=== PATIENT | female | born 1940 | race Caucasian/White ===

== ENCOUNTER 2024-12-23 12:18 | Outpatient (AMB) | payer OTHER, SELFPAY ==
--- NOTE | 2024-12-23 12:46 | A.OFFVIS_ITS ---
Intake Visit Reasons: TIA (cardiology) HPI Comments Details: 84 yo woman with congenital deafness and associated speech impediment, CAD s/p PCI x 2, DM, and HTN who was seen at [facility] in June of 2024 with symptoms of right facial droop and disorientation. Her testing revealed no acute lesion on CT and Left P1 stenosis on CTA. I did not find an MRI done. She did not have anymore episodes. She said that she was here for a neurology consultation with an unclear reason for referral. She was referred by her nurse practitioner, Kodi James, from [facility] but is unaware of the reason for the visit and denies any recent stroke-like symptoms. The patient reports a history of two hernias, one in the upper abdomen and one in the lower abdomen, with a hernia repair surgery planned for December or January. She mentions requiring pre-operative tests, including imaging, but cannot recall the specifics. She has a past medical history of a heart attack. The patient was born deaf and attended the [employer] for 13 years, where she learned to read lips and speak. She uses a walker for ambulation due to leg weakness. She also notes having difficulty with memory, is trying to lose weight, and feels her abdomen is large. Review of Systems Narrative - Neurological: Reports memory impairment. - Denies recent stroke-like symptoms. - Musculoskeletal: Reports leg weakness requiring a walker. - HEENT: Reports being born deaf and that her speech is not always clear. - Gastrointestinal: Reports having two hernias, one in the upper and one in the lower abdomen. - Constitutional: Reports trying to lose weight. Physical Exam Neuro Other: Mental Status: She is alert and awake and she was interviewed with help of an director center. Sign language, speech, and lip reading were used. She did not know why she was here. She was able to answer questions with no obvious confusion. Cranial Nerves: CN VII: Facial movements symmetrical. CN VIII: Hearing intact to bedside conversation is absent. CN IX, X: Palate elevates symmetrically. CN XI: Shoulder shrug and head turn symmetrical. CN XII: Tongue midline without atrophy or fasciculations. Motor: No obvious arm or leg weakness Reflexes: Deep tendon reflexes are trace to absent Coordination: Ttbkwq-ks-eizk and bsel-vm-zazk testing normal. No dysmetria. Gait and Station: Slow and cautious with a walker Extrapyramidal: Full facial expressions and blinking. No rigidity. Movements are appropriate with no tremor or abnormality. Speech: Moderate speech impediment Assessment & Plan Assessment & Plan (1) Intracranial atherosclerosis: Comment: CT brain WO at [facility] in June 2024: Mild cerebral and cerebellar atrophy CTA brain and neck at [facility] in June 2024: Severe L P1 stenosis Code(s): I67.2 - Cerebral atherosclerosis Category: Medical (2) MCI (mild cognitive impairment): Code(s): G31.84 - Mild cognitive impairment of uncertain or unknown etiology Category: Medical Plan Impression: a: Left P1 stenosis b: Mild cerebral and cerebellar atrophy c: Congenital deafness resulting in speech impediment d: An episode of disorientation and facial droop in June when she went to [facility] Rec: a: Antiplatelet agent b: BP control c: Statin d: EEG to r/o seizure d/o e: No contraindication to hernia surgery or anesthesia Orders: Orders Vitamin B12 and Folate Today G31.84 - Mild cognitive impairment of uncertain or unknown etiology EEG Routine Today G40.909 - Epilepsy, unspecified, not intractable, without status epilepticus Coding Level of Care Code New Pt Level 4 (13254) Diagnoses Intracranial atherosclerosis I67.2 MCI (mild cognitive impairment) G31.84 Time Spent (min) 50 Comment Sign language interpretation used for this consult
== END 2024-12-23 13:15 | disposition home or self-care (01) ==
LOC: HO.HSM 12:18
PROVIDERS: PCP Nurse Practitioner; Visit Provider Psychiatry & Neurology Neurology
DX: I67.2 Cerebral atherosclerosis (principal); G31.84 Mild cognitive impairment of uncertain or unknown etiology
CPT/HCPCS: 99204

== ENCOUNTER → 2024-12-23 12:18 | Outpatient (BNVA) | payer OTHER, SELFPAY | PROVIDERS: PCP Nurse Practitioner; Visit Provider Psychiatry & Neurology Neurology | DX: I67.2 Cerebral atherosclerosis (principal) | CPT/HCPCS: 99202 ==

== ENCOUNTER 2025-01-26 13:28 | Outpatient (REF) | payer OTHER, SELFPAY ==
--- OUTSIDE RECORDS SUMMARY | 2025-01-22 11:30 | XMS_ITS | Encounter Summary ---
Author Organization [facility] Address [address] [place] [address] Care Team Providers Care Ornamenter Hand Name Role Phone Kodi James NP Primary Care Provider [phone] Encounter Details Date Type Department Care Team (Latest Contact Info) Description 01/22/2025 11:30 AM EST Clinical Support [facility] [address] [place] [phone] Dee Louis LPN Cough, unspecified type (Primary Dx) Social History Tobacco Use Types Packs/Day Years Used Date Smoking Tobacco: Never Comments:Never smoked tobacc o Alcohol Use Standard Drinks/Week Comments Not Currently 0 (1 standard drink = 0.6 oz pur e alcohol) Interpersonal Safety Answer Date Record ed Physical Abuse Unrecognized value 09/25/2024 Verbal Abuse Unrecognized value 09/25/2024 Comments Unknown Sex and Gender Information Value Date Recorded Sex Assigned at Female 05/15/2024 11:02 AM EDT Legal Sex Female 6:34 PM EST Gender Identity Female 05/15/2024 11:02 AM EDT Sexual Orientation Straight 05/15/2024 11 :02 AM EDT documented as of this encounter Progress Notes * Dee Louis LPN - 01/22/2025 11:30 AM EST SN visit to assess cold sx Ppt sitting in recliner with legs elevated visiting with friend. Ppt states she is feeling much improved from previous visit re cold sx. No further sinus congestionor cough present. Skin warm and dry. Appetite good. Having no new c/o pain or discomfort. LSCTA To continue with present plan of care documented in this encounter Plan of Treatment Upcoming Encounters Date Type Department Care Team (Late st Contact Info) Description 02/03/2025 12:45 PM EST Clinical Support [facility] [place] [address] [place] [address] 02/10/2025 1:10 PM EST Clinical Support [facility] [address] [address] 03/12/2025 9:00 AM EST Office Visit V[facility] Surgery - [place] [address] [place] [address] Betty Cordero PA [address] [place] [phone] documented as of this encounter Visit Diagnoses Diagnosis Cough, unspecified type- Primary documented in this encounter Additional Health Concerns Assessment Noted Time PHQ-9 Depression Total Score: 0 05/07/19 25 2:35 PM EDT documented as of this encounter Care Teams Ornamenter Hand Relationship Specialty Start Date End Date Kodi James NP [address] [place] [address] PCP - General 12/11/23 documented as of this encounter
--- OUTSIDE RECORDS SUMMARY | 2025-01-23 13:45 | XMS_ITS | Encounter Summary ---
Author Organization [facility] Address [address] [place] [address] Care Team Providers Care Instructor Private Name Role Phone Kodi James NP Primary Care Provider Reason for Visit * Consultation (Routine) - Authorized Specialty Diagnoses / Procedures Referred By Contac t Referred To Contact Otolaryngology Diagnoses ENT/Spoke to gladys @ [facility] aware of appt and txp Procedures EXTERNAL VISIT Kodi James NP [address] [place] [address] Phone: tel: fax:[phone] [facility] [address] [place] [address] Phone: tel: fax: Referral ID Status Reason Start Date Expiration Date V isits Requested Visits Authorized [id number] Authorized 01/23/2025 01/23/2026 1 1 Encounter Details Date Type Department Care Team (Late st Contact Info) Description 01/23/2025 1:45 PM EST [place] External Visit [facility] [address] [place] [phone] Social History Tobacco Use Types Packs/Day Years [...] AM EDT documented as of this encounter Plan of Treatment Upcoming Encounters Date Type Department Care Team (Late st Contact Info) Description 02/03/2025 12:45 PM EST Clinical Support [facility] [address] [phone] 02/10/2025 1:10 PM EST Clinical Support [facility] [address] [phone] 03/12/2025 9:00 AM EST Office Visit Vascular Surgery - [place] [address] [place] [phone] Betty Cordero PA [address] [place] [phone] documented as of this encounter Visit Diagnoses Not on filedocumented in this encounter Additional Health Concerns Assessment Noted Time PHQ-9 Depression Total Score: 0 05/07/19 25 2:35 PM EDT documented as of this encounter Care Teams Instructor Private Relationship Specialty Start Date End Date Kodi James NP [address] [place] [address] PCP - General 12/11/23 documented as of this encounter
--- OUTSIDE RECORDS SUMMARY | 2025-01-26 13:00 | XMS_ITS | Encounter Summary ---
Author Organization [facility] Address [address] [place] [address] Care Team Providers Care Clamshell Operator Name Role Phone Kodi James HAND THERAPIST Primary Care Provider [phone] Reason for Visit * Consultation (Routine) - Authorized Specialty Diagnoses / Procedures Referred By Contac t Referred To Contact Neurology Diagnoses [facility] (EE[facility]) Procedures EXTERNAL VISIT Kodi James NP [address] [place] [address] Phone: tel: fax:[phone] [facility] [address] Phone: tel: Referral ID Status Reason Start Date Expiration Date V isits Requested Visits Authorized [id number] Authorized 01/26/2025 01/26/2026 1 1 Encounter Details Date Type Department Care Team (Late st Contact Info) Description 01/26/2025 1:00 PM EST [facility]ACE [facility] [address] [place] [address] Social History Tobacco Use Types Packs/Day Years [...] Description 02/03/2025 12:45 PM EST Clinical Support [facility] [place] [address] [place] [address] 02/10/2025 1:10 PM EST [facility] [address] [phone] 03/12/2025 9:00 AM EST Office Visit Vascular Surgery - [place] [address] [place] [phone] Betty Cordero PA [address] [place] [phone] documented as of this encounter Visit Diagnoses Not on filedocumented in this encounter Additional Health Concerns Assessment Noted Time PHQ-9 Depression Total Score: 0 05/07/19 25 2:35 PM EDT documented as of this encounter Care Teams Clamshell Operator Relationship Specialty Start Date End Date Kodi James NP [address] [address] PCP - General 12/11/23 documented as of this encounter
--- NOTE | 2025-01-26 14:52 | EEG_ITS ---
History: 84 yo woman with congenital deafness and associated speech impediment, CAD s/p PCI x 2, DM, and HTN who was seen at [facility] in June of 2024 with symptoms of right facial droop and disorientation. Her testing revealed no acute lesion on CT and Left P1 stenosis on CTA. I did not find an MRI done. She did not have anymore episodes. She also notes having difficulty with memory Medication: Description: Technical description:? Photic stimulation: Yes Hyperventilation:?Omitted Behavioral state: Cooperative State of Consciousness: Awake Skull defect: None Sedation: None Handedness: Right Duration of study:? 33min 58sec This is a 16 channel EEG with an EKG lead. Patient is reported awake during the tracing. Background EEG rhythm is low amplitude fast during wakefulness with transitioning into drowsiness with generalized theta range slowing. Photic stimulation does not produce any significant abnormality. Hyperventilation is not performed. Cardiac lead does not reveal any significant abnormality. No sharp wave spikes or paroxysmal tendency noted. Impression: Unremarkable EEG. MARIED
--- OUTSIDE RECORDS SUMMARY | 2025-01-26 16:56 | XMS_ITS | Encounter Summary ---
Author Organization [facility] Address [address] [place] [address] Care Team Providers Care Bakery Technician Name Role Phone Kodi Jmaes NP Primary Care Provider [phone] Reason for Visit * Reason Onset Date Comments Clinical 07/03/2024 Jake the staff at [facility] called to report participant was c/o stomach issues and diarrhea . Stated she did not feel the need to go any hospital but the staff at [facility] wanted to know if some medication can be ordered to alleviate the symptoms. production shift supervisor provider informed for further f/u. Encounter Details Date Type Department Care Team ([facility] st Contact Info) Description 07/03/2024 [place] On-Call [facility] [address] [place] [address] Kodi James NP [address] [address] Social History Tobacco Use Types Packs/Day Years Used Date Smoking Tobacco: Never Comments:Never smoked tobacc o Alcohol Use Standard Drinks/Week Comments Not Currently 0 (1 standard drink = 0.6 oz pur e alcohol) Interpersonal Safety Answer Date Record ed Physical Abuse Unrecognized value 06/17/2024 Verbal Abuse Unrecognized value 06/17/2024 Comments Unknown Sex and Gender Information Value [...] Description 02/03/2025 12:45 PM EST Clinical Support [facility] [place] [address] [place] [address] 02/10/2025 1:10 PM EST Clinical Support [facility] [address] [address] 03/12/2025 9:00 AM EST Office Visit Vascular [facility] [address] [place] [address] Betty Cordero PA [address] [place] [phone] documented as of this encounter Visit Diagnoses Not on filedocumented in this encounter Additional Health Concerns Infection Onset Date Last Indicated Resolved Time Respiratory Rule-Out 09/25/2024 09/25/2024 025 9:16 PM EDT COVID-19 Rule-Out 09/25/2024 09/25/2024 09/25/2024 9:16 PM EDT COVID-19 09/25/2024 09/25/2024 10/25/2024 7:06 PM EDT Assessment Noted Time PHQ-9 Depression Total Score: 0 05/07/19 25 2:35 PM EDT documented as of this encounter Care Teams Bakery Technician Relationship Specialty Start Date End Date Kodi James NP [address] [facility] [address] [place] [address] PCP - General 12/11/23 documented as of this encounter
--- OUTSIDE RECORDS SUMMARY | 2025-01-26 16:56 | XMS_ITS | Encounter Summary ---
Author Organization [facility] Address [address] [place] [address] Care Team Providers Care Freelance Copywriter Name Role Phone Kodi James NP Primary Care Provider [phone] Encounter Details Date Type Department Care Team (Late st Contact Info) Description 01/21/2025 Telephone [facility] [address] [place] [phone] Dee Louis LPN Social History Tobacco Use Types Packs/Day Years [...] Progress Notes * Dee Louis LPN - 01/21/2025 9:22 AM EST TC placed to ppt daughter Joya to inform her that ppt chest x-ray obtained 01/20/25 was negative . No answer. Message left on daughter Amys voice mail to call [facility] clinic. documented in this encounter Plan of Treatment Upcoming Encounters Date Type Department Care Team (Late st Contact Info) Description 02/03/2025 12:45 PM EST Clinical Support [facility] [place] [address] [place] [address] 02/10/2025 1:10 PM EST Clinical Support [facility] [address] [address] 03/12/2025 9:00 AM EST Office Visit Vascular Surgery - [place] [address] [place] [address] Betty Cordero PA [address] [place] [phone] documented as of this encounter Visit Diagnoses Not on filedocumented in this encounter Additional Health Concerns Assessment Noted Time PHQ-9 Depression Total Score: 0 05/07/19 25 2:35 PM EDT documented as of this encounter Care Teams Freelance Copywriter Relationship Specialty Start Date End Date Kodi James NP [address] [place] [address] PCP - General 12/11/23 documented as of this encounter
--- OUTSIDE RECORDS SUMMARY | 2025-01-26 16:56 | XMS_ITS | Encounter Summary ---
Author Organization [facility] Address [address] [place] [address] Care Team Providers Care Barrel Repairer Name Role Phone Kodi James NP Primary Care Provider [phone] Reason for Visit * Reason Onset Date Comments Clinical 11/30/2024 Linda from [facility] called to report daughter Joya had came to facility to pre pour the ordered Tramadol for par. Linda reports the daughter thinks 50 mg of Tramadol is too much ? Informed Linda the message would be relayed to the provider and further follow up will provided next day when clinic is open. Verbalized understanding. Encounter Details Date Type Department Care Team ([facility] st Contact Info) Description 11/30/2024 [place] On-Call [facility] [address] [place] [address] Kodi James NP [address] [address] Social History Tobacco Use Types Packs/Day Years [...] as of this encounter Progress Notes * Kaylee Hyde RD - 12/02/2024 8:37 AM EDT RESOLVED documented in this encounter Plan of Treatment Upcoming Encounters Date Type Department Care Team (Late st Contact Info) Description 02/03/2025 12:45 PM EST Clinical Support [facility] [address] [address] 02/10/2025 1:10 PM EST Clinical Support [facility] [address] [address] 03/12/2025 9:00 AM EST Office Visit Vascular Surgery - [place] [address] [place] [phone] Betty Cordero PA [address] [place] [phone] documented as of this encounter Visit Diagnoses Not on filedocumented in this encounter Additional Health Concerns Assessment Noted Time PHQ-9 Depression Total Score: 0 05/07/19 25 2:35 PM EDT documented as of this encounter Care Teams Barrel Repairer Relationship Specialty Start Date End Date Kodi James NP [address] [place] [address] PCP - General 12/11/23 documented as of this encounter
--- OUTSIDE RECORDS SUMMARY | 2025-01-26 16:56 | XMS_ITS | Encounter Summary ---
Author Organization [facility] Address [address] [place] [address] Care Team Providers Care Assembler 1St Shift Name Role Phone Kodi James NP Primary Care Provider [phone] Reason for Visit * Reason Onset Date Comments Medication 12/14/2024 Jonas from [facility] called to inquire if the Doxycycline that was ordered via [facility] was correct vs a CPN order. Spoke with publicity consultant provider who reports par will not need abx until Sunday12/15/2024. Clinic staff to follow up with distrubution of medication to par. Encounter Details Date Type Department Care Team ([facility] st Contact Info) Description 12/14/2024 [place] On-Call [facility] [address] [place] [address] Kodi James NP [facility] [address] [address] Social History Tobacco Use Types Packs/Day Years [...] as of this encounter Progress Notes * Gila Chiu RN - 12/15/2024 8:40 AM EST 12/15/24 PCP ordered doxycycline to be delivered. skiagrapher to deliver today. documented in this encounter Plan of Treatment Upcoming Encounters Date Type Department Care Team (Late st Contact Info) Description 02/03/2025 12:45 PM EST Clinical Support [facility] [address] [phone] 02/10/2025 1:10 PM EST Clinical Support [facility] [address] [address] 03/12/2025 9:00 AM EST Office Visit Vascular Surgery - [place] [address] [place] [address] Betty Cordero PA [address] [place] [phone] documented as of this encounter Visit Diagnoses Not on filedocumented in this encounter Additional Health Concerns Assessment Noted Time PHQ-9 Depression Total Score: 0 05/07/19 25 2:35 PM EDT documented as of this encounter Care Teams Assembler 1St Shift Relationship Specialty Start Date End Date Kodi James NP [address] [place] [address] PCP - General 12/11/23 documented as of this encounter
--- OUTSIDE RECORDS SUMMARY | 2025-01-26 16:56 | XMS_ITS | Encounter Summary ---
Author Organization [facility] Address [address] [place] [address] Care Team Providers Care Local Announcer Name Role Phone Kodi James NP Primary Care Provider [phone] Reason for Visit * Reason Onset Date Comments Medication 01/01/2025 Myrna from [facility] called to inquire the whereabouts of participant's meds. Eventually they were found in her residence. No further follow up needed. Encounter Details Date Type Department Care Team ([facility] st Contact Info) Description 01/01/2025 [place] On-Call [facility] [address] [place] [address] Kodi James NP [address] [phone] Social History Tobacco Use Types Packs/Day Years [...] Description 02/03/2025 12:45 PM EST Clinical Support [facility] [place] [address] [place] [address] 02/10/2025 1:10 PM EST Clinical Support [facility] [address] [phone] 03/12/2025 9:00 AM EST Office Visit Vascular Surgery - [place] [address] [place] [address] Betty oCrdero PA [address] [place] [phone] documented as of this encounter Visit Diagnoses Not on filedocumented in this encounter Additional Health Concerns Assessment Noted Time PHQ-9 Depression Total Score: 0 05/07/19 25 2:35 PM EDT documented as of this encounter Care Teams Local Announcer Relationship Specialty Start Date End Date Kodi James NP [address] [address] PCP - General 12/11/23 documented as of this encounter
--- OUTSIDE RECORDS SUMMARY | 2025-01-26 16:56 | XMS_ITS | Encounter Summary ---
Author Organization [facility] Address [address] [place] [address] Care Team Providers Care Warehouse Distribution Manager Name Role Phone Kodi James NP Primary Care Provider [phone] Reason for Visit * Reason Onset Date Comments Clinical 09/27/2024 Dang from [facility] reports par was ready for discharge back to residence and will be going via ambulance. propeller driven airplane mechanic provider made aware. Encounter Details Date Type Department Care Team (Late st Contact Info) Description 09/27/2024 [place] On-Call [facility] [address] [place] [phone] Ramila Andino NP [address] [phone] Social History Tobacco Use Types Packs/Day Years [...] Description 02/03/2025 12:45 PM EST Clinical Support [facility] [place] [address] [place] [address] 02/10/2025 1:10 PM EST Clinical Support [email or web address] [address] [phone] 03/12/2025 9:00 AM EST Office Visit Vascular Surgery - [place] [address] [place] [address] Betty Cordero PA [address] [place] [phone] documented as of this encounter Visit Diagnoses Not on filedocumented in this encounter Additional Health Concerns Infection Onset Date Last Indicated Resolved Time COVID-19 09/25/2024 09/25/2024 10/25/2024 7:06 PM EDT Assessment Noted Time PHQ-9 Depression Total Score: 0 05/07/19 25 2:35 PM EDT documented as of this encounter Care Teams Warehouse Distribution Manager Relationship Specialty Start Date End Date Kodi James NP [address] [address] PCP - General 12/11/23 documented as of this encounter
--- OUTSIDE RECORDS SUMMARY | 2025-01-26 16:56 | XMS_ITS | Clinical Summary ---
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 Name Role Phone Namrata Godoy NP Primary Care Provider [phone] Allergies Active Allergy Reactions Criticality Noted Date Comments Sulfa (Sulfonamide Antibiotics) 02/14/2022 Valsartan-Hydrochlorothiaz enzo 02/14/2022 DIOVAN- rxn: restless leg syndrome Medications loperamide (IMODIUM) 2 mg capsule 1 cap by mouth every 1 to 2 hours prn loose stool; administer after each loose stool until symptoms controlled; do not exceed 16 mg per 24 h Active sennosides-docusate sodium (Stool Softener-Stimulant Laxat) 8.6-50 mg capsuleIndications:Po lypharmacy Take 1 capsule by mouth 2 (two) times a day. 56 capsule 05/07/19 026 Active ascorbic acid (VITAMIN C) 1,000 mg tabletIndications:His tory of recurrent UTIs Take 1 tablet (1,000 mg total) by mouth 1 (one) time each day. 28 tablet 06/04/19 25 026 Active methenamine hippurate (HIPREX) 1 gram tabletIndications:His tory of recurrent UTIs Take 1 tablet (1 g total) by mouth 2 (two) times a day with meals. 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 V24, [facility] V28),Overactive bladder Take 2 capsules (200 mg total) by mouth 3 (three) times a day. 180 each 06/12/19 026 Active mirabegron (Myrbetriq) 50 mg tablet extended release 24 hr 24 hr tabletIndications:Andreea ropathy due to type 2 diabetes mellitus ([facility] V24, [facility] V28),Overactive bladder Take 1 tablet (50 mg total) by mouth 1 (one) time each day. 30 each 06/12/19 026 Active clopidogreL (PLAVIX) 75 mg tabletIndications:NST VELMA (non-ST elevated myocardial infarction) ([facility] V24, [facility] V28) Take 1 tablet (75 mg total) by mouth 1 (one) time each day. 30 each 06/26/19 026 Active aspirin (Vazalore) 81 mg capsuleIndications:NS KAYLEE (non-ST elevated myocardial infarction) ([facility] V24, [facility] V28),H/O heart artery stent Take 81 mg by mouth 1 (one) time each day. 30 capsule 06/26/19 026 Active omega-3 (FISH OIL) 360-1,200 mg capsuleIndications:Mi xed hyperlipidemia,Anxiet y Take 1 capsule (1,200 mg total) by mouth 2 (two) times a day. 30 capsule 07/12/19 026 Active montelukast (SINGULAIR) 10 mg tabletIndications:Pearl ana hypertension,NSTEMI (non-ST elevated myocardial infarction) ([facility] V24, [facility] V28),S/P right coronary artery (RCA) stent placement,Coronary artery disease involving aniak heart without angina pectoris, unspecified vessel or lesion type,Vitamin D deficiency,Hypomagnes emia,Generalized anxiety disorder,DM (diabetes mellitus) with complications ([facility] V24, [facility] V28),Mild intermittent asthma, unspecified whether complicated Take 1 tablet (10 mg total) by mouth at bedtime. at bedtime. 30 each 09/24/19 Active magnesium oxide 400 mg magnesium capsuleIndications:Pr imary hypertension,NSTEMI (non-ST elevated myocardial infarction) ([facility] V24, [facility] V28),S/P right coronary artery (RCA) stent placement,Coronary artery disease involving aniak heart without angina pectoris, unspecified vessel or lesion type,Vitamin D deficiency,Hypomagnes emia,Generalized anxiety disorder,DM (diabetes mellitus) with complications ([facility] V24, [facility] V28),Mild intermittent asthma, unspecified whether complicated Take 400 mg by mouth 1 (one) time each day. 30 capsule 09/24/19 Active fluticasone propion-salmeteroL (ADVAIR DISKUS) 100-50 mcg/dose diskus inhalerIndications:Pr imary hypertension,NSTEMI (non-ST elevated myocardial infarction) ([facility] V24, [facility] V28),S/P right coronary artery (RCA) stent placement,Coronary artery disease involving ani[place] heart without angina pectoris, unspecified vessel or lesion type,Vitamin D deficiency,Hypomagnes emia,Generalized anxiety disorder,DM (diabetes mellitus) with complications ([facility] V24, [facility] V28),Mild intermittent asthma, unspecified whether complicated Inhale 1 puff by mouth 2 (two) times a day. fluticasone propionate/lindsey meterol xinafoate (fluticasone propion-salmet ike) 100-50 mcg/dose Blister, With Inhalation Device 1 inhalation inhaled 2 times per day 1 each 09/24/19 Active DULoxetine (CYMBALTA) [address] capsuleIndications:Pr imary hypertension,NSTEMI (non-ST elevated myocardial infarction) ([facility] V24, [facility] V28),S/P right coronary artery (RCA) stent placement,Coronary artery disease involving aniak heart without angina pectoris, unspecified vessel or lesion type,Vitamin D deficiency,Hypomagnes emia,Generalized anxiety disorder,DM (diabetes mellitus) with complications ([facility] V24, [facility] V28),Mild intermittent asthma, unspecified whether complicated Take 3 capsules (90 mg total) by mouth 1 (one) time each day. 3 cap(s) orally DAILY 90 capsule 09/24/19 25 Active cholecalciferol (VITAMIN D-3) 125 mcg (5,000 unit) capsuleIndications:Pr imary hypertension,NSTEMI (non-ST elevated myocardial infarction) (CMS/HCC V24, [facility]/HCC V28),S/P right coronary artery (RCA) stent placement,Coronary artery disease involving aniak heart without angina pectoris, unspecified vessel or lesion type,Vitamin D deficiency,Hypomagnes emia,Generalized anxiety disorder,DM (diabetes mellitus) with complications (CMS/HCC V24, [facility] V28),Mild intermittent asthma, unspecified whether complicated Take 1 capsule (5,000 Units total) by mouth 1 (one) time each day. 30 each 09/24/19 026 Active atenoloL (TENORMIN) 50 mg tabletIndications:Pearl ana hypertension,NSTEMI (non-ST elevated myocardial infarction) (CMS/HCC V24, [facility] V28),S/P right coronary artery (RCA) stent placement,Coronary artery disease involving aniak heart without angina pectoris, unspecified vessel or lesion type,Vitamin D deficiency,Hypomagnes emia,Generalized anxiety disorder,DM (diabetes mellitus) with complications (CMS/HCC V24, [facility]/HCC V28),Mild intermittent asthma, unspecified whether complicated Take 1 tablet (50 mg total) by mouth 1 (one) time each day. 30 each 09/24/19 026 Active albuterol HFA (PROAIR HFA ; PROVENTIL HFA ; VENTOLIN HFA) 90 mcg/actuation inhalerIndications:Pr imary hypertension,NSTEMI (non-ST elevated myocardial infarction) (CMS/HCC V24, [facility]/HCC V28),S/P right coronary artery (RCA) stent placement,Coronary artery disease involving aniak heart without angina pectoris, unspecified vessel or lesion type,Vitamin D deficiency,Hypomagnes emia,Generalized anxiety disorder,DM (diabetes mellitus) with complications (CMS/HCC V24, [facility]/HCC V28),Mild intermittent asthma, unspecified whether complicated Inhale 2 puffs by mouth every 4 (four) hours if needed for wheezing or shortness of breath. 6.7 g 3 09/24/19 25 Active amLODIPine-olmesartan (VINCENZO) 5-40 mg per tabletIndications:Res istant hypertension Take 1 tablet by mouth 1 (one) time each day. 30 each 09/28/19 Active pravastatin (PRAVACHOL) 40 mg tabletIndications:Mix ed hyperlipidemia Take 1 tablet (40 mg total) by mouth at bedtime. Center ( Center) 30 each 10/03/19 25 Active hydrALAZINE (APRESOLINE) 25 mg tabletIndications:DM (diabetes mellitus) with complications (CMS/HCC V24, CMS/HCC V28),Resistant hypertension Take 1 tablet (25 mg total) by mouth 2 (two) times a day. 60 tablet 10/08/19 Active insulin glargine-yfgn 100 unit/mL (3 mL) injectionIndications: Primary hypertension,NSTEMI (non-ST elevated myocardial infarction) (CMS/HCC V24, CMS/HCC V28),S/P right coronary artery (RCA) stent placement,Coronary artery disease involving aniak heart without angina pectoris, unspecified vessel or lesion type,Vitamin D deficiency,Hypomagnes emia,Generalized anxiety disorder,DM (diabetes mellitus) with complications (CMS/HCC V24, CMS/HCC V28),Mild intermittent asthma, unspecified whether complicated Inject 18 Units under the skin 1 (one) time each day. 15 mL 4 10/08/19 Active pantoprazole (PROTONIX) 20 mg EC tabletIndications:Gas troesophageal reflux disease without esophagitis Take 1 tablet (20 mg total) by mouth 2 (two) times a day. 28 each 10/25/19 Active busPIRone (BUSPAR) 5 mg tabletIndications:Mix ed hyperlipidemia,Anxiet y Take 2 tablets (10 mg total) by mouth 2 (two) times a day. 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 V24, [facility] V28),Neuropathy due to type 2 diabetes mellitus ([facility] V24, [facility] V28),Radiculopathy of cervical spine,Fibromyalgia,At herosclerosis of aniak arteries of extremities with intermittent claudication, left leg (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 V24, [facility] V28),Mild intermittent asthma, unspecified whether complicated,Chronic obstructive pulmonary disease, unspecified COPD type ([facility] V24, [facility] V28),Mild intermittent reactive airway disease without complication,Seasonal allergic rhinitis, unspecified trigger,Multiple nodules of lung,Obstructive sleep apnea,Cough, unspecified type,Hemorrhoids, unspecified hemorrhoid type,PVD (peripheral vascular disease) ([facility] V24),TIA (transient ischemic attack),Vitamin D deficiency,Dental caries,Irritable bowel syndrome with constipation,Hepatic steatosis,Other specified disorders of bone density and structure, multiple sites,Osteoarthritis, unspecified osteoarthritis type, unspecified site,Hammertoe, bilateral,Onychomycos is,DM (diabetes mellitus) with complications ([facility] V24, [facility] V28),Hypomagnesemia,M ixed hyperlipidemia,Locali zed edema,Generalized anxiety disorder,Umbilical hernia without obstruction and without gangrene,Lactose intolerance,Lymphedem a,Obesity, class 1,Hyperkeratosis,Pres byopia of both eyes,Polypharmacy,Erwin or depressive disorder, single episode, mild ([facility] V24),History of non-ST elevation myocardial infarction (NSTEMI) Take 1 tablet (20 mg total) by mouth 1 (one) time each day. 30 each 11/12/19 25 026 Active saliva substitute (BIOTENE DRY MOUTH) solutionIndications:X erostomia Take 2 sprays by mouth 3 (three) times a day. 36 mL 2 11/28/19 25 026 Active calcium carbonate (Tums) 500 mg (200 mg elemental calcium) chewable tabletIndications:Gas troesophageal reflux disease without esophagitis Chew 1 tablet (500 mg total) 2 (two) times a day. 60 each 11 12/02/19 Active simethicone (Mylanta Gas) 125 mg chewable tabletIndications:Fla tulence/gas pain/belching Chew 1 tablet (125 mg total) every 6 (six) hours if needed for flatulence. Cycle (Next Cycle) Please sent short fill to center 30 tablet 5 12/13/19 Active traZODone (DESYREL) 50 mg tabletIndications:Ins omnia, unspecified type Take 1 tablet (50 mg total) by mouth at bedtime. 30 each 12/13/19 Active Active Problems Problem Noted Date Diagnosed Date Skin tear of left lower leg without complication 12/31/2024 Assessment & Plan (12/31/2024 8:56 AM EST): Well healing superficial skin tear left lower extremity approximately 3.5 cm. Skin flap adhered to wound bed. Bordered gauze DSG, no active drainage or evidence of infection. Plan: Continue current wound care DSG record changer 3 days via [facility] care nursing, continue current medications and continue to monitor. Omental mass 12/14/2024 Assessment & Plan (12/19/2024 2:45 PM EST): Using ASL interpretor this provider reviewed with the participant the results of her recent CT ABD/Pelvis on 12/12/2024: IMPRESSION: 1. No evidence of acute abdominal organ abnormality. 2. Multiple pulmonary nodules. Some of these are not confirmed to be stable. There have been multiple pulmonary nodules demonstrated on previous chest CT. 3. Omental mass which is intimately associated with small bowel loops. This is not significantly changed in size. This is of uncertain etiology. Possibilities include a developmental cyst. 4. Fat-containing ventral hernias. 5. Subcutaneous fat stranding in the lower abdominal wall/panniculus. This may represent cellulitis. 6. 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 Any decision to perform follow-up for this incidental pancreatic cystic lesion in a patient greater than 80 years old measuring less than 1 cm depends upon other medical conditions and willingness to undergo intervention. I explained that her hernia is stable and to continue to monitor it and if it becomes painful to notify [employer] immediately. Discussion regarding a general surgery referral earlier in 2024 that was cancelled by your DTR and it is reported that she stated, my mother doesn't need this. I explained to Jose that the Omental Mass has gotten slightly larger and exactly what it is is unknown and a referral to general surgery is a good idea so we can get the experts opinion on what this mass is and their recommendations on the next steps. I would like your DTR to accompany you this appointment. No general surgery appointment is currently scheduled, we are waiting for your DTR's approval. Jose stated understanding and agreed with the plan. Assessment & Plan (12/14/2024 7:45 AM EST): CT ABD/Pelvis 12/09/2024: 3. Omental mass which is intimately associated with small bowel loops. This is not significantly changed in size. This is of uncertain etiology. Possibilities include a developmental cyst. Plan: Planned call with Colt's DTR to discuss possible referral to oncology for multiple pulmonary nodules of uncertain etiology I put an order is for a general surgery referral for her hernia on 10/24/2024. ML custom tailor reports that Jose's DTR called and said her mom did not need to go see general surgery, so it was cancelled. Inflammatory disease of subcutaneous fat 025 Assessment & Plan (12/14/2024 7:52 AM EST): CT ABD/Pelvis 12/09/2024: 5. Subcutaneous fat stranding in the lower abdominal wall/panniculus. This may represent cellulitis. Labs from 12/12/2024: CBD 11.5(H); ABS Neutrophil count: 8.63(H) Plan: Order for RTC, Doxycycline 100 mg PO BID X 10 days Cystic mass of pancreas 12/14/2024 Assessment & Plan (12/14/2024 8:01 AM EST): CT ABD/Pelvis 12/09/2024: 6. 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 Any decision to perform follow-up for this incidental pancreatic cystic lesion in a patient greater than 80 years old measuring less than 1 cm depends upon other medical conditions and willingness to undergo intervention. Appears to be a stable cystic lesion, will order pancreatic enzyme panel. DTR cancelled General Surgery Referral that was order by this provider in October 2024. Dental caries 12/12/2024 Assessment & Plan (12/12/2024 1:11 PM EST): Colt has chronic severe dental caries, was seen in ED on 11/28/24 for dental pain, given ultram and oxycodone. Colt was seen by dentistry on 12/04/24 and had filling of #[id number], colt was also seen yesterday by dentistry for additional filling, this provider is waiting on dental note from yesterdays visit. par denies pain at time of visit. Will follow up with dentistry for most recent note and order dental follow up for par. Flatulence/gas pain/belching 12/12/2024 Assessment & Plan (12/12/2024 1:07 PM EST): Par reports gas, belching. Colt had CT ABD/pelvis on 12/09/24, waiting on read from radiologist. Colt has umbilical hernia seen on CT, referral in for par to see GI, simethicone prescribed PRN for gas. Insomnia 12/12/2024 Assessment & Plan (12/12/2024 1:12 PM EST): Colt reports chronic insomnia, asking for something to take to help her sleep. Educated on sleep hygiene, and ordered trazodone for insomnia. Will continue to monitor. Education given on trazodone. Xerostomia 11/27/2024 Assessment & Plan (11/27/2024 4:30 PM EDT): Images from the original note were not included. ENT clinic visit on 11/25/24: Venous stasis dermatitis 11/19/2024 Assessment & Plan (11/19/2024 1:42 PM EDT): Uniboot wrap applied to LLE, par has 2+ pedal pulses, order placed for vascular surgery follow up, see US from 11/07/2024. Will continue to monitor. TIA (transient ischemic attack) 09/25/2024 Overview (10/24/2024): She was hospitalized at [facility] 09/25/2024 with complaints of altered mental status and weakness. Patient presented with right sided facial droop. Brain CT showed no acute findings and CTA of the head and neck showed severe stenosis of the P1 segment of the posterior cerebral artery with no large vessel occlusion or internal carotid artery stenosis. Plan was for her to have an MRI however she was unable to have an MRI due to to cochlear implant patient's symptoms resolved. She was suspected to have had a TIA. She was seen by neurologist who recommended continuation of aspirin and Plavix and increasing atorvastatin to 80 mg once a day. She underwent an EEG which was normal. Additionally patient tested positive for COVID-19 and she was treated with supportive care. Assessment & Plan (10/24/2024 3:55 PM EDT): Stable, asymptomatic, see overview above, will continue current medications, Vascular F/U ordered, CTM. CAD (coronary artery disease) 08/06/2024 Assessment & Plan (10/24/2024 3:52 PM EDT): Chronic condition, stable, asymptomatic, will continue current STATIN and Cressey III, repeat Lipid panel in one month, last on 09/26/24 Chol 225 (H), LDL 113 (H), TG 368 (H), HDL (38). Assessment & Plan (10/13/2024 2:36 PM EDT): Patient has history of coronary artery disease with previous history of NSTEMI 06/2024. At that time she was treated with a heparin drip and transferred to [facility] for coronary angiogram. She ultimately received SHONNA to the left circumflex and a staged procedure with subsequent stenting of the left circumflex with a drug-eluting stent. Patient remains on dual antiplatelet therapy with aspirin and Plavix. She denies any chest pain or dyspnea. She denies any bleeding or excessive bruising. She continues on cardioprotective medical therapy with aspirin, Plavix, atenolol and statin. I have reviewed with the patient the importance of a heart healthy lifestyle which includes eating a low-fat low-salt diet, getting regular exercise, maintaining a healthy weight, not smoking, and following up with routine medical care. History of non-ST elevation myocardial infarctio n (NSTEMI) 06/17/2024 Assessment & Plan (10/24/2024 4:25 PM EDT): Par is w/o complaints of chest pain, adding Furosemide 20 mg PO QD, will repeat lipid panel in one months, continue DAPT therapy and CTM. Assessment & Plan (07/23/2024 11:32 AM EDT): Jose has no complaints today at time of visit, she denies chest pain, palpitations, dizziness. Continue Plavix and ASA daily, order placed for cardiovascular follow up s/p PCI placement. Assessment & Plan (06/25/2024 1:11 PM EDT): [facility] ED on 06/16/24: NSTEMI, seen by cardiology, put on heperin drip. Transferred to [facility] on 06/17/24. Interventional Cardiology on 06/19/2024: Interventional Summary Mid RCA: IVUS guided successful PCI of the mid RCA using 3.0 mm X 18 mm [place] SHONNA postdilated with 3.0 mm X 8 mm NC balloon Considering prolonged duration of case with radiation and contrast exposure, we decided to end the procedure today and bring her back in 2 to 3 weeks for staged PCI of the distal LCx. Interventional Recommendations Continue aspirin 81 mg p.o. indefinitely and Plavix 75 mg p.o. daily 1 year postintervention. Bring her back in 2 to 3 weeks for staged PCI of the distal LCx. Guideline directed medical management for coronary artery disease. F/U on 07/14/2024 for staged cardiac catheterization, will continue current medications, including DAPT and monitor. Assessment & Plan (06/17/2024 9:59 AM EDT): Nifedipine discontinued due it being contraindicated during MN, increased 2 week mortality. Par presented to [facility] T-1 06/16/24. HS Troponin trending up: #1 602, #2 745, #3 1,072. Par remains in the hospital on a heparin drip, with CTM. Cough 05/06/2024 Overview (05/06/2024): CXR ordered, first dose mucinex PO given in clinic. Assessment & Plan (10/24/2024 3:41 PM EDT): Chronic, intermittent cough, no cough during exam, stable, will CTM. Polypharmacy 04/28/2024 Assessment & Plan (10/24/2024 4:23 PM EDT): Medication reconciliation performed. Assessment & Plan (05/06/2024 2:35 PM EDT): Medications reviewed and adjusted. Assessment & Plan (04/28/2024 2:38 PM EDT): Generally done at all clinic visits, when possible. Some recommendations: Stop Vit C 1000mg QD Consider prognosis and 10 year benefit, and age, vs HLD, h/o CVA, and suggest decreasing atorvastatin from 80mg to 20mg. Lipids on 12/10/2023: Tot Chol: 123; HDL 25.0 LDL 60 TG 227. Recheck in 6 to 8 months. Keep fish oil capsules. Stop pantoprazole 20mg. Chronic use only for some conditions such as Molina's esophagus. Stop Vit A 3,000mcg daily. (PAR is on I-HANNAH) DM-II management: last A1C on 12/10/2023 was 6.0. Goal for geriatrics pts is A1C of 7.5 to 8.0. Suggest stopping insulin, and closely monitor. Next, consider stopping Trulicity, as appropriate (does she need it?) Stop Vit D supplementation: The last Vit D level on 12/10/2023 was 69. Suggest getting routine Vit D level annually. HTN: currently on multiple medications. Bps from, 04/03/24 to 06/06/23: SBPs 108- 103. DBP 58-73 Currently on torsemide 20mg, spironolactone 25mg, olmesartan 50mg, atenolol 50mg, nifedipine 20mg. Considering all of her cardiovascular risk factors, keep olmesartan 50mg (renally protective), torsemide 20mg and spironolactone 25mg (diuretic and K-sparing med would be helpful given chronic LE edema). * Stop atenolol 50mg (unless there is a need for rate control) *Stop CCB, nifedipine 20mg (unless there is an indication) Titrate the meds we are keeping, to maintain BP's in optimal target zone for age and comorbidity. F/y with Dermatology and with PCP for scheduled appts. Other specified disorders of bone density and structure, multiple sites 02/29/2024 Overview (02/29/2024): DEXA: Z13.820, M85.89 Assessment & Plan (10/24/2024 4:07 PM EDT): No DEXA scan seen on chart review. Plan: prioritize cardiovascular health and f/u's, lipid control while continue VIT D and calcium supplementation, no fractures. Assessment & Plan (05/06/2024 2:27 PM EDT): DEXA scan ordered. Allergic rhinitis 02/29/2024 Assessment & Plan (10/24/2024 3:38 PM EDT): Chronic condition, stable, asymptomatic, will continue current medications and CTM. Assessment & Plan (05/06/2024 1:03 PM EDT): Reports nasal congestion, requesting flonase. Flonase ordered. Does not have hx of glaucoma. Dental infection 02/29/2024 Assessment & Plan (11/19/2024 12:43 PM EDT): Par has an appointment to see dentistry tomorrow, BUN 64, creatinine 0.9, Augmentin 875-125 mg BID x 10d ordered. Will continue to monitor. Assessment & Plan (10/24/2024 3:59 PM EDT): Bilateral lower molars, no abscess on exam, dental appointment is in 6 days, will CTM. Assessment & Plan (05/06/2024 1:24 PM EDT): Will follow up with dental, has routine dental exams. Lactose intolerance 02/29/2024 Assessment & Plan (10/24/2024 4:20 PM EDT): Chronic condition, stable, asymptomatic, will continue current medications and CTM. Assessment & Plan (05/06/2024 2:31 PM EDT): Denies any flatulence or GI upset. Irritable bowel syndrome with constipation 02/28 Assessment & Plan (10/24/2024 4:04 PM EDT): >>ASSESSMENT AND PLAN FOR IRRITABLE BOWEL SYNDROME WITH DIARRHEA WRITTEN ON 10/07/2024 4:24 PM BY NAMRATA GODOY NP CT ABD/Pelvis on 06/16/24: FINDINGS: LOWER THORAX: Separately dictated CT of the chest and stranding multiple pulmonary nodules. HEPATOBILIARY: No focal liver lesions. Status post cholecystectomy SPLEEN: No focal lesion. PANCREAS: No focal mass or ductal dilatation. ADRENALS: No nodules. KIDNEYS/URETERS: Renal cysts nonobstructing left renal calculus. PELVIC ORGANS/BLADDER: Mildly distended bladder. No suspicious pelvic mass. PERITONEUM / RETROPERITONEUM: No ascites or free air. No retroperitoneal lymphadenopathy. VESSELS: Scattered atherosclerotic calcifications throughout the aorta and its major branches. No aneurysm. GI TRACT: Redundant sigmoid colon. No acute infectious or inflammatory process. Nonspecific dilated loop of small bowel bowel in the midabdomen. No mesenteric edema. No evidence for overt obstruction. BONES AND SOFT TISSUES: Degenerative changes. Spinal stenosis and neuroforaminal narrowing at the lower lumbar levels. No acute fracture. Tiny fat-containing ventral hernia. IMPRESSION: No acute infectious or inflammatory process on the current exam. Plan; Dicyclomine 20 mg PO QID (take before meals and at night). Will continue to monitor response to treatment and adjust therapy as needed. Assessment & Plan (10/24/2024 4:00 PM EDT): Chronic intermittent condition, stable, asymptomatic, will continue current medications and CTM. Assessment & Plan (05/06/2024 1:24 PM EDT): Denies constipation. Reports normal regular bowel movements. Lymphedema 02/29/2024 Assessment & Plan (10/24/2024 4:21 PM EDT): Chronic venous insufficiency BLEs and arterial insufficiency RLE, repeat art US and vascular surgery consults ordered. Assessment & Plan (05/06/2024 2:32 PM EDT): No lymphedema, decreased torsemide from 20 to 10mg. Discontinued Spironolactone d/t low blood pressure. Neuropathy due to type 2 diabetes mellitus 02/28 Overview (02/29/2024): Neuropathy due to Diabetes Assessment & Plan (10/24/2024 3:26 PM EDT): Last A1C on 09/25/2024 was 6.1%, stable, discontinued POC BG monitoring, will continue current medications. Neuropathy - Par has decreased sensation to soft tough in bilateral feet/ankles, stable, will CTM. Assessment & Plan (05/06/2024 1:15 PM EDT): Chronic condition that is stable, Will continue current dose of gabapentin. Assessment & Plan (04/28/2024 2:38 PM EDT): Chronic, slowly progressive condition. Pt has decreased sensation due to CVA and DM-II distal neuropathy of LE's Multiple nodules of lung 02/29/2024 Assessment & Plan (12/14/2024 7:34 AM EST): CT ABD/Pelvis 12/09/2024: 2. Multiple pulmonary nodules. Some of these are not confirmed to be stable. There have been multiple pulmonary nodules demonstrated on previous chest CT. There are multiple pulmonary nodules. There is an unchanged 1.1 cm right middle lobe nodule. There is a 0.8 cm nodule in the medial aspect of the right lower lobe. I cannot confirm stability. There are multiple additional nodules including in the periphery of the middle lobe laterally and in the lateral aspect of the right lower lobe. I cannot confirm stability. Most of these nodules were present on 06/16/24. Par is 84 y/o obese female who resided at an [facility]. This provider will discuss the nodules with the Participant and call her DTR to discuss possible referral to oncology. Assessment & Plan (10/24/2024 3:40 PM EDT): Chronic condition, stable, asymptomatic, last CT Chest wo contrast in May 2024: IMPRESSION: 1. Multiple previously noted pulmonary nodules. These are difficult to assess for interval change given significant motion artifact. There are grossly similar to the previous study. 2. There is a new small area of patchy groundglass and groundglass nodularity in the medial left lower lobe which is suspected to be inflammatory. Plan: Monitor annually with chest CT, continue current medications and CTM. Assessment & Plan (05/06/2024 1:17 PM EDT): Multiple stable pulmonary nodules shown on CT chest on 07/06/23. Will order repeat CT chest and monitor. Obesity, class 1 02/29/2024 Assessment & Plan (10/24/2024 4:22 PM EDT): 39.2 kg/m Body Mass Index (Class 2 obesity), discussed diet for weight loss in respect to health, longevity and increased benefit to quality of life. Par stated understanding. Assessment & Plan (05/06/2024 2:33 PM EDT): BMI: 34 Obstructive sleep apnea 02/29/2024 Assessment & Plan (10/24/2024 3:41 PM EDT): Par does not tolerate CPAP, will continue current medications and CTM. Osteoarthritis 02/29/2024 Overview (02/29/2024): Osteoarthritis, Bilateral Knees & Bilateral Hands Assessment & Plan (10/24/2024 4:11 PM EDT): Discussed the benefits of weight loss for her health and improved quality of life. Currently she is 39.2 kg/m Body Mass Index (Class 2 obesity), age and obesity related osteoarthritis in her weight baring joints, stable, no complaints. Assessment & Plan (05/06/2024 2:12 PM EDT): Denies pain at time of visit. Radiculopathy of cervical spine 02/29/2024 Overview (02/29/2024): Radiculopathy, Spine Cervical, Lumbar Assessment & Plan (10/24/2024 3:26 PM EDT): Chronic condition, stable, asymptomatic, will continue current medications and CTM. Fibromyalgia 02/29/2024 Assessment & Plan (10/24/2024 3:27 PM EDT): Chronic condition, stable, mild discomfort localized to LLE, medial to pre- patella bursa, will continue current medications and CTM. Assessment & Plan (05/06/2024 12:58 PM EDT): Denies pain at time of visit. Continue gabapentin and Cymbalta for pain. Will continue to monitor. PVD (peripheral vascular disease) 02/29/2024 Overview (10/24/2024): Peripheral Vascular Disease (PVD) with DM >>OVERVIEW FOR VENOUS INSUFFICIENCY WRITTEN ON 02/29/2024 6:49 AM BY FRED TAYLOR Venous Insufficiency, with Edema Assessment & Plan (10/24/2024 3:45 PM EDT): Chronic conditions w/bilateral lower extremity venous insufficiency and high velocities in RLE arterial US, repeating study and referring to vascular surgery, continue current medications and CTM. Assessment & Plan (10/24/2024 3:45 PM EDT): >>ASSESSMENT AND PLAN FOR PVD (PERIPHERAL VASCULAR DISEASE) ([facility] V24) WRITTEN ON 04/28/2024 2:38 PM BY KUSUM FISHMAN MD Chronic progressive condition. Due to atherosclerosis of [place] arteries of the extremities. No DVT despite numerous ultrasounds for this condition. >>ASSESSMENT AND PLAN FOR VENOUS INSUFFICIENCY WRITTEN ON 04/28/2024 2:38 PM BY KUSUM FISHMAN MD Chronic, progressive in nature, and bilateral. Contributing towards the etiology of the LLE rash. Atherosclerosis of [place] ar teries of extremities with intermittent claudication, left leg 02/29/2024 Assessment & Plan (12/19/2024 2:39 PM EST): Arterial duplex US BLEs on 11/20/2024 IMPRESSION: Right leg: Mild atherosclerotic changes without evidence of significant stenosis or occlusion. Left leg: Mild atherosclerotic changes without evidence of significant stenosis with previously noted elevation of velocity in the distal SFA not demonstrated on the present study. 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 This provider explained using ASL interpretor via tablet that she has an appointment with vascular surgery in there office to discuss the findings on her exam and to take into consideration her chronic LLE erythema and periodic swelling and pain. I explained to Jose that I placed a call to her DTR Joya with this intension of asking her to accompany you during this vascular surgery appt, on 01/23/2025 at 15:00 but I got VM. I did leave a message asking her to call me back. Jose stated understanding. I explained that we will continue to reach out to your DTR to ask if she will accompany her. Jose stated understanding and agreed with the plan. Assessment & Plan (11/21/2024 9:34 AM EDT): Arterial Duplex US BLE's reported on 11/20/2024: IMPRESSION: Right leg: Mild atherosclerotic changes without evidence of significant stenosis or occlusion. Left leg: Mild atherosclerotic changes without evidence of significant stenosis with previously noted elevation of velocity in the distal SFA not demonstrated on the present study. 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 Plan: continue current plan with denise boot wrap LLE w/DSG change every 2 X week and continue to monitor. Assessment & Plan (10/24/2024 3:31 PM EDT): June 2023: Arterial duplex US BLEs: MPRESSION: Elevated peak systolic velocity in the distal left SFA suggestive of a focal stenosis. Plan: repeat arterial duplex US and refer to vascular surgery. Assessment & Plan (10/13/2024 2:33 PM EDT): Patient has history of coronary artery disease with previous history of NSTEMI 06/2024. At that time she was treated with a heparin drip and transferred to [facility] for coronary angiogram. She ultimately received SHONNA to the left circumflex and a staged procedure with subsequent stenting of the left circumflex with a drug-eluting stent. Patient remains on dual antiplatelet therapy with aspirin and Plavix. She denies any chest pain or dyspnea. She denies any bleeding or excessive bruising. She continues on cardioprotective medical therapy with aspirin, Plavix, atenolol and statin. I have reviewed with the patient the importance of a heart healthy lifestyle which includes eating a low-fat low-salt diet, getting regular exercise, maintaining a healthy weight, not smoking, and following up with routine medical care. Assessment & Plan (05/06/2024 12:58 PM EDT): Follow up with vascular on 05/21/24. Assessment & Plan (04/28/2024 2:38 PM EDT): Chronic progressive condition. The chronic rash may be partially due to vascular ischemia of arteries and venous stasis, Hammertoe, bilateral 02/29/2024 Assessment & Plan (10/24/2024 4:11 PM EDT): Hammer toes 2-5 bilaterally, no evidence of pressure related injury, will CTM. Assessment & Plan (05/06/2024 2:11 PM EDT): Routine podiatry visits. Stable condition, will continue to monitor. Hyperkeratosis 02/29/2024 Overview (02/29/2024): Hyperkeratotic Lesions Assessment & Plan (10/24/2024 4:22 PM EDT): Mild, bilateral feet, stable, Assessment & Plan (05/06/2024 2:34 PM EDT): Stable condition will continue to monitor and follow up with dermatology as needed. Onychomycosis 02/29/2024 Assessment & Plan (10/24/2024 4:12 PM EDT): X10, stable, continue [facility] podiatry referral for at risk foot care Hepatic steatosis 02/29/2024 Overview (10/24/2024): US Liver - 07/06/23 - 0945 Report Status:Signed INDICATION: FATTY LIVER COMPARISON: December 2022 TECHNIQUE: Grayscale and color ultrasound was performed of the abdomen FINDINGS: The tail of the pancreas is obscured due to overlying bowel gas. The remainder of the pancreas is unremarkable. The liver is enlarged and nodular in contour with coarsened echotexture. No focal liver lesion is identified. Hepatopedal flow in the main portal vein. The gallbladder is surgically absent. There is no right-sided hydronephrosis. A cyst is noted in the right kidney measuring 1.2 x 1.2 x 0.9 cm without significant vascularity; similar to prior (previously 1.0 x 0.9 x 1.1 cm). The spleen measures 12 x 2.9 x 11.3 cm. Measurements: CBD diameter: 5 mm Right kidney length: 9.9 cm Liver length: 21.5 cm IVC: Visualized IMPRESSION: Hepatomegaly with cirrhosis Assessment & Plan (10/24/2024 4:03 PM EDT): CT ABD/Pelvis wo contrast in June 2024: No focal liver lesions, s/p cholecystectomy. Chronic condition, stable, asymptomatic, will continue current medications and CTM. Assessment & Plan (10/24/2024 4:03 PM EDT): >>ASSESSMENT AND PLAN FOR HEPATIC STEATOSIS WRITTEN ON 05/06/2024 2:20 PM BY NAMRATA GODOY NP CMP drawn, will monitor liver enzymes. Follow up US ordered, last US 07/05/24 showed liver cirrhosis. >>ASSESSMENT AND PLAN FOR HEPATIC CIRRHOSIS (CMS/HCC V24, CMS/HCC V28) WRITTEN ON 05/06/2024 2:18 PM BY NAMRATA GODOY NP Last liver US on 07/06/23 showed Hepatomegaly with cirrhosis. Follow up US liver ordered. 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 Assessment & Plan (05/06/2024 12:42 PM EDT): Being treated by ophthalmology with intravitreal injections. Will continue to be monitored by ophthalmology. Presbyopia of both eyes 02/29/2024 Assessment & Plan (10/24/2024 4:22 PM EDT): Chronic condition, stable, asymptomatic, will continue current medications and CTM. Assessment & Plan (05/06/2024 2:34 PM EDT): Routine care being managed by ophthalmology. Will continue to monitor. Major depressive disorder, single episode, mild 02/29/2024 Assessment & Plan (10/24/2024 4:23 PM EDT): Stable, asymptomatic, will continue current medications and CTM. Assessment & Plan (05/06/2024 2:36 PM EDT): Phq-2 score of 0. Denies feelings of depression. Asthma 02/15/2022 Overview (02/29/2024): Asthma, Moderate Persistent, Uncomplicated Assessment & Plan (10/24/2024 3:37 PM EDT): Chronic condition, stable, asymptomatic, will continue current medications and CTM. Assessment & Plan (05/06/2024 1:01 PM EDT): 02 sat 99% on RA today in clinic. Denies SOB. Will CTM. COPD (chronic obstructive pulmonary disease) 12/2022 Assessment & Plan (10/24/2024 3:37 PM EDT): Chronic condition, stable, asymptomatic, will continue current medications and CTM. Assessment & Plan (05/06/2024 1:02 PM EDT): 02 sat 99% on RA today in clinic. Denies SOB. Will CTM. Deafness 02/15/2022 Overview (05/06/2024): Deafness, Bilateral with Cochlear Implant. Routine audiology follow up. Assessment & Plan (10/24/2024 3:22 PM EDT): S/P cochlear implants, failed. Par is able to read lips well, stable, will CTM. Assessment & Plan (05/06/2024 12:40 PM EDT): Bilateral cochlear implant, preferred way of communicating via reading lips. Assessment & Plan (04/28/2024 1:01 PM EDT): Congenital. We communicated through writing and PAR's lip reading. Will make sure than any future clinic visits have a welcome center agent available, to get a complete ROS and ensure that PAR's concerns are addressed well. DM (diabetes mellitus) with complications 2022 Assessment & Plan (10/24/2024 4:12 PM EDT): DM well controlled, continue current therapy and CTM. Assessment & Plan (05/06/2024 2:13 PM EDT): POC 117 at time of visit, continue insulin and trulicity. Edema 02/15/2022 Assessment & Plan (10/24/2024 4:15 PM EDT): 2 Xlg compression stockings fitted this encounter, ML home care to reach out to the [facility] to remind them that aids are suppose to be helping her with things like putting on her compression stockings, will CTM. Assessment & Plan (05/06/2024 12:51 PM EDT): No current edema in bilateral extremities, on torsemide and spironolactone. Generalized anxiety disorder 02/15/2022 Assessment & Plan (11/10/2024 5:04 PM EDT): Jose agreed to increasing her buspirone from 5 mg PO BID to 10 mg PO BID to help control her anxiety, medication adjustment has been ordered next day center. nursing will go out to make medication change tomorrow, will CTM. Assessment & Plan (10/24/2024 4:16 PM EDT): Chronic intermittent condition, stable, asymptomatic, will continue current medications and CTM. Assessment & Plan (05/06/2024 2:38 PM EDT): GAD7 score of 2. Assessment & Plan (05/06/2024 12:53 PM EDT): Well controlled on duloxetine, continue taking and will continue to monitor. Denies SI and HI. GERD (gastroesophageal reflux disease) Assessment & Plan (10/24/2024 3:56 PM EDT): Plan: increased patoprazole 20 to BID, provided Gerilanta for breakthrough GERD, reviewed sleep hygiene practice, will CTM. Assessment & Plan (05/06/2024 1:21 PM EDT): Well controlled on PPI. Consider DEXA scan to monitor for osteoporosis with mcfp PPI use. 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 Chronic condition, stable, Par ambulates with steady gain with mild left upper extremity weakness, maintains balance, no evidence of trauma on exam Assessment & Plan (10/24/2024 3:23 PM EDT): Mild left sided weakness. Par moves all extremities with mild weakness LUE, LLE, stable, ambulates with rollator walker, maintains balance, will CTM. Assessment & Plan (04/28/2024 2:38 PM EDT): History of CVA, remote, with sequelae. Hemorrhoids 02/15/2022 Assessment & Plan (10/24/2024 3:42 PM EDT): Chronic intermittent condition, stable, asymptomatic, will continue current medications and CTM. Assessment & Plan (05/06/2024 1:18 PM EDT): Denies any rectal bleeding, bloody stools, will continue to monitor. CBC pending. Primary hypertension 02/15/2022 Overview (02/29/2024): Hypertension, Malignant Assessment & Plan (10/24/2024 3:42 PM EDT): Normotensive on exam, will continue current medications and CTM. Assessment & Plan (10/13/2024 2:36 PM EDT): BP today 128/68. Patient will continue with medical therapies as prescribed. Assessment & Plan (10/07/2024 4:29 PM EDT): Elevated BP on exam 10/07/24. Plan: increase amlodipine from 2.5 mg ot 5 mg PO QD, will CTM and adjust therapy as needed. Assessment & Plan (05/06/2024 1:23 PM EDT): BP: 90/60, 96/68, and 100/76 in clinic today. Torsemide decreased from 20mg Once daily to 10 mg once daily, spironolactone discontinued . Will continue to monitor blood pressure. Educated on importance of PO fluids. Par agreed to plan. Hypomagnesemia 02/15/2022 Assessment & Plan (10/24/2024 4:13 PM EDT): Last Mag WNL, continue current medications and CTM. Assessment & Plan (05/06/2024 12:43 PM EDT): Labs drawn and pending CMP. Mixed hyperlipidemia 02/15/2022 Assessment & Plan (10/24/2024 4:13 PM EDT): Repeat lipids in one month, continue current medications and CTM. Assessment & Plan (10/13/2024 2:36 PM EDT): Goal cholesterol is less than 70. Patient's last LDL cholesterol was 113. She has been on pravastatin 40 mg daily. I will order repeat lipid panel. Assessment & Plan (05/06/2024 12:56 PM EDT): On statin, statin efficiency based on 10 year risk reduction, consider discontinuing statin to reduce number of medications taken daily. Last Total cholesterol in 12/29, 123. Trigylcerides elevated at 227, continue taking omega 3 fatty acids. Reactive airway disease 02/15/2022 Assessment & Plan (10/24/2024 3:38 PM EDT): Chronic condition, stable, asymptomatic, will continue current medications and CTM. Assessment & Plan (05/06/2024 1:02 PM EDT): 02 sat 99% on RA today in clinic. Denies SOB. Will CTM. Vitamin D deficiency 02/15/2022 Assessment & Plan (10/24/2024 3:59 PM EDT): Last VIT D3 level in December 2023 was WNL, repeating labs this encounter, will continue current medications and CTM. Assessment & Plan (05/06/2024 1:23 PM EDT): Vit D 59 on 12/10/23. Will continue Vit D supplement and monitor. Ventral hernia without obstruction or gangrene 0 02/15/2022 Assessment & Plan (12/14/2024 7:28 AM EST): CT ABD/Pelvis 12/09/2024: IMPRESSION: 4. Fat-containing ventral hernias. Jose endorsed trepidation about going to see the general surgeon for her hernia. I explained to her that the appointment is an office visit to explain her hernia and her options. I explained that currently the CT shows the hernia is stable and poses no immediate threat. I will call her DTR to explain her mom's trepidation with the visit and ask if she can accompany her to the meeting. I instructed jose to alert ML if she develops any abdominal pain. Par stated understanding and agreed with plan. Assessment & Plan (11/10/2024 5:02 PM EDT): Multiple abdominal hernias: Assessment: Ventral hernia measuring 7 cm X 6 cm round, no pain on palpation, niranjan-umbilical hernia at the 12 O'clock position measuring 5 cm X 5 cm round, no pain on palpation, small umbilical hernia measuring 1 cm x 1.5 cm round, no pain on palpation. Plan: CT ABD W/oral contrast to evaluate abdominal hernias. In clinic Loulou watched two videos with closed caption on abdominal wall hernias. She stated understanding on what a hernia is after watching the videos. She agreed to the CT ABD with oral contrast. She understood that after the CT is performed we will have her come back to clinic to explain to her what the results are. She is currently moving her bowels daily and is experiencing no abdominal pain, condition is stable, will continue to monitor for CT results and continue to monitor. Assessment & Plan (10/24/2024 4:18 PM EDT): Umbilical hernia and niranjan-umbilical hernia at the 12 O'clock position present, painful to palpation, will order Gen Surg referral and CTM. Assessment & Plan (05/06/2024 2:30 PM EDT): Stable condition, will continue to monitor. Resolved Problems Problem Noted Date Diagnosed Date Resolved Date Elevated troponin 06/16/2024 10/13/2024 Blanching rash 04/28/2024 05/06/2024 Unsteady gait 02/29/2024 10/24/2024 Incontinence without sensory awareness 02/29/2024 10/24/2024 Assessment & Plan (05/06/2024 2:31 PM EDT): Wearing brief. Cellulitis of left lower leg 02/15/2022 05/06/2024 Assessment & Plan (05/06/2024 2:07 PM EDT): LLE red, Assessment & Plan (04/28/2024 2:38 PM EDT): Differential diagnosis: Erysepelas Superficial thrombophlebitis Lipodermatosclerosis Vascular eczema Note: if PAR has not yet been to [facility], it would be helpful for PCP to refer for evaluation and treatment. We need to let Derm clinic know that a welcome center agent must be available. Encounters Date Type Department Care Team Description 01/26/2025 1:00 PM EST PACE External Visit [email or web address] [address] [phone] 01/26/2025 Telephone [facility] [address] [place] [phone] Danielle Moss, AN 01/23/2025 1:45 PM EST PACE External Visit [address] [phone] 01/22/2025 11:30 AM EST Clinical Support [facility] [address] [phone] Dee Louis LPN Cough, unspecified type (Primary Dx) 01/22/2025 Telephone [facility] [address] [place] [phone] Keeley Cuevas RN [facility]20[facility] [facility] [address] [place] [phone] Dee Louis LPN 01/20/2025 [facility]phone [facility] [address] [place] [phone] Danielle Moss, AN 01/19/2025 1:00 PM EST [facility] [address] [place] [phone] Dee Louis LPN Cough, unspecified type (Primary Dx) 01/14/2025 Telephone [facility] [address] [place] [phone] Namrata Godoy NP 01/08/2025 1:00 PM EST PACE External Visit [facility] [address] [phone] 01/01/2025 PACE On-Call [address] [phone] Namrata Godoy, ARIADNA 12/23/2024 12:00 PM EST PACE External Visit [address] [phone] 12/19/2024 1:00 PM EST Office Visit [address] [phone] Namrata Godoy NP Atherosclerosis of aniak arteries of extremities with intermittent claudication, left leg (CMS/HCC V24) (Primary Dx); Omental mass 12/15/2024 12:00 PM EST Clinical Support [address] [phone] Dee Louis LPN 12/14/2024 PACE On-Call [address] [phone] Namrata Godoy NP 12/14/2024 PACE On-Call [address] [phone] Namrata Godoy NP 12/12/2024 12:30 PM EST Office Visit [address] [phone] Namrata Godoy NP Flatulence/gas pain/belching (Primary Dx); Dental caries; Insomnia, unspecified type 12/11/2024 1:00 PM EST PACE External Visit [address] [address] 12/09/2024 2:15 PM EST - 12/09/2024 11:59 PM EST Hospital Encounter [facility] CT Scan [address] [place] [phone] Umbilical hernia without obstruction and without gangrene; Ventral hernia without obstruction or gangrene Discharge Disposition: Home or Self Care 12/04/2024 3:00 PM EDT PACE External Visit [address] [phone] 12/01/2024 12:00 PM EDT Clinical Support [address] [phone] Dee Louis LPN Venous stasis dermatitis (Primary Dx) 11/30/2024 PACE On-Call [address] [phone] Namrata Godoy NP 11/29/2024 PACE On-Call [address] [phone] Namrata Godoy NP 11/29/2024 PACE On-Call [address] [phone] Kusum Fishman MD 11/29/2024 PACE On-Call [address] [phone] Ramila Andino NP 11/28/2024 4:14 PM EDT - 11/28/2024 6:[address] [facility] Emergency [address] [place] [address] Kushal Calabrese MD Chronic dental pain (Primary Dx) Discharge Disposition: Home or Self Care 11/28/2024 PACE Admissions [address] [phone] Gila Chiu RN Chronic dental pain (Primary Dx) 11/27/2024 10:00 AM EDT Clinical Support [address] [phone] Dee Louis LPN 11/25/2024 10:45 AM EDT PACE External Visit [address] [address] 11/24/2024 10:30 AM EDT Clinical Support [address] [phone] Cindy Crowe RN 11/20/2024 3:00 PM EDT PACE External Visit [address] [phone] 11/20/2024 12:00 PM EDT Clinical Support [address] [phone] Dee Louis LPN 11/19/2024 12:00 PM EDT Office Visit [address] [phone] Namrata Godoy NP Dental infection (Primary Dx); Venous stasis dermatitis; Skin tear of left lower leg without complication, subsequent encounter 11/18/2024 1:00 PM EDT PACE External Visit [address] [address] 11/11/2024 3:00 PM EDT PACE External Visit [address] [address] 11/11/2024 9:15 AM EDT Clinical Support [address] [phone] Cindy Crowe RN Generalized anxiety disorder (Primary Dx) 11/10/2024 11:00 AM EDT Office Visit [address] [phone] Namrata Godoy NP Generalized anxiety disorder (Primary Dx); Gastroesophageal reflux disease without esophagitis; Neuropathy due to type 2 diabetes mellitus (CMS/HCC V24, CMS/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 V24, [facility] V28); Mild intermittent reactive airway disease without complication; Seasonal allergic rhinitis, unspecified trigger; Multiple nodules of lung; Obstructive sleep apnea; Cough, unspecified type; Hemorrhoids, unspecified hemorrhoid type; PVD (peripheral vascular disease) ([facility] V24); TIA (transient ischemic attack); Vitamin D deficiency; Dental caries; Irritable bowel syndrome with constipation; Other specified disorders of bone density and structure, multiple sites; Osteoarthritis, unspecified osteoarthritis type, unspecified site; Hammertoe, bilateral; Onychomycosis; DM (diabetes mellitus) with complications ([facility] V24, [facility] V28); Hypomagnesemia; Mixed hyperlipidemia; Localized edema; Umbilical hernia without obstruction and without gangrene; Lactose intolerance; Obesity, class 1; Hyperkeratosis; Presbyopia of both eyes; Polypharmacy; Major depressive disorder, single episode, mild ([facility] V24); History of non-ST elevation myocardial infarction (NSTEMI); Anxiety; Ventral hernia without obstruction or gangrene 11/10/2024 Plan of Care Documentation [facility] [address] [place] [address] 11/07/2024 1:00 PM EDT - 11/07/2024 11:59 PM EDT Hospital Encounter 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 V24, [facility] V28); Neuropathy due to type 2 diabetes mellitus ([facility] V24, [facility] V28); Radiculopathy of cervical spine; Fibromyalgia; Atherosclerosis of aniak arteries of extremities with intermittent claudication, left leg (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 V24, [facility] V28); Mild intermittent asthma, unspecified whether complicated; Chronic obstructive pulmonary disease, unspecified COPD type ([facility] V24, [facility] V28); Mild intermittent reactive airway disease without complication; Seasonal allergic rhinitis, unspecified trigger; Multiple nodules of lung; Obstructive sleep apnea; Cough, unspecified type; Hemorrhoids, unspecified hemorrhoid type; PVD (peripheral vascular disease) ([facility] V24); TIA (transient ischemic attack); Vitamin D deficiency; Dental caries; Irritable bowel syndrome with constipation; Hepatic steatosis; Other specified disorders of bone density and structure, multiple sites; Osteoarthritis, unspecified osteoarthritis type, unspecified site; Hammertoe, bilateral; Onychomycosis; DM (diabetes mellitus) with complications ([facility] V24, [facility] V28); Hypomagnesemia; Mixed hyperlipidemia; Localized edema; Generalized anxiety disorder; Umbilical hernia without obstruction and without gangrene; Lactose intolerance; Lymphedema; Obesity, class 1; Hyperkeratosis; Presbyopia of both eyes; Polypharmacy; Major depressive disorder, single episode, mild ([facility] V24); History of non-ST elevation myocardial infarction (NSTEMI) Discharge Disposition: Home or Self Care 11/04/2024 1:30 PM EDT Treatment [facility] [address] [place] [phone] Kendra Steel, HEAD PASTRY CHEF 10/30/2024 1:30 PM EDT [place] External Visit [address] [phone] Healthcare maintenance; Dental caries; Periodontal disease 10/28/2024 2:30 PM EDT Treatment [facility] [address] [place] [phone] Kendra Steel, HEAD PASTRY CHEF 10/28/[address] [phone] Namrata Godoy NP 10/27/2024 2:30 PM EDT Clinical Support [address] [phone] Cindy Crowe, RN Gastroesophageal reflux disease without esophagitis (Primary Dx); Coronary artery disease involving aniak coronary artery of aniak heart without angina pectoris from Last 3 Months Immunizations Immunization Administration Dates Next Due Influenza trivalent, 0.5mL (Fluad) 65yo and olde r 11/21/2024 Influenza, Unspecified 10/31/2023 Pneumococcal conjugate 13 va lent (Prevnar 13, PCV13) 2mo and older 12/31/2018 Pneumococcal polysaccharide 23 valent (Pneumovax 23) 2yo and older 10/27/2011 Tdap Tetanus diptheria acell ular pertussis (Boostrix; Adacel) 7yo and older 11/22/2017 Zoster recombinant (Shingrix) 19yo and older Surgical History Surgery Date Site/Laterality Comments CATARACT EXTRACTION TOTAL KNEE ARTHROPLASTY Right HERNIA REPAIR CARDIAC CATHETERIZATION DONE ON 06/19/2024 AT [facility] INDICATIONS:CAD AND PLANNED FOLLOW UP STUDY FOR CLINICAL CONDITION OR INTERVENTIONS Medical History Medical History Date Comments Deafness Using ASL interp reter Cerebrovascular disease DX:Cereb rovascular disease Irritable bowel syndrome DX:Irri table bowel syndrome History of fall History of cellulitis Left Lower Leg Status post cataract extract ion of both eyes with insertion of intraocular lens Hypertension Hyperlipidemia Diabetes mellitus (CMS/HCC V24, CMS/HCC V28) Anxiety and depression Gait instability Walker Family History Medical History Relation Name Comments Stroke Other Relation Name Status Comments Other Social History Tobacco Use Types Packs/Day Years Used Date Smoking Tobacco: Never Tobacco Cessation:Counseling Given: Not Answered Comments:Never smoked tobacco Alcohol Use Standard Drinks/Week Comments Not Currently [...] Orientation Straight 05/15/2024 11 :02 AM EDT Last Filed Vital Signs Vital Sign Reading Time Taken Comments Blood Pressure 142/74 01/19/2025 1:00 PM EST Pulse 68 01/19/2025 1:00 PM EST Temperature 36.5 C (97.7 F) 01/19/2025 1:00 PM EST Respiratory Rate 18 01/19/2025 1:00 PM EST Oxygen Saturation 94% 01/19/2025 1:00 PM EST Inhaled Oxygen Concentration - - Weight 93.8 kg (206 lb 12.8 oz) 12/19/2024 2:46 PM EST Height 154.9 cm (5' 1 ) 11/28/2024 4:26 PM EDT Body Mass Index 39.07 11/28/2024 4:26 PM EDT Plan of Treatment Upcoming Encounters Date Type Department Care Team (Late st Contact Info) Description 02/03/2025 12:45 PM EST Clinical Support [employer] [place] [address] [place] [address] 02/10/2025 1:10 PM EST Clinical Support [employer] [place] [address] [place] [address] 03/12/2025 9:00 AM EST Office Visit [facility] [place] [address] [place] [phone] Betty Cordero PA [address] [place] [phone] Health Maintenance Due Date Last Done Comments Diabetes: Annual Foot Exam 07/28/1950 Diabetes: Annual Retina Eye Exam 07/28/1950 RSV Immunization Adult Patients (1 - 1-dose 75+ series) 2016 Osteoporosis Screening (Bone Density Screening) 01/07/2022 Social Influencers of Health Screening 01/07/2022 Zoster Vaccines (2 of 2) 06/22/2022 04/27/2022 Diabetes: Annual Urine Albumin-Creatinine Ratio (uACR) 03/21/2023 10/20/2020 Diabetes: Blood Sugar Control Test (HGBA1C) 03/29/2025 09/26/2024, 09/25/2024, 12/10/2023 COVID-19 Vaccine (7 - Pfizer risk season) 2025 12/08/2024, 10/31/2023, 03/22/2022, Additional history exists Falls Risk Assessment 09/27/2025 09/27/2024 Diabetes: Annual GFR (Glomerular Filtration Rate) 11/10/2025 11/10/2024, 10/24/2024, 09/26/2024, Additional history exists Hypertension/CHF/CAD Annual BMP Blood Test 11/10/2025 11/10/2024, 10/24/2024, 09/26/2024, Additional history exists DTaP,Tdap,and Td Vaccines (2 - Td or Tdap) 11/23/2027 11/22/2017 Cholesterol Screening (Lipid Panel) 11/10/2029 11/10/2024, 09/26/2024, 12/10/2023 Pneumococcal Vaccine: 50+ Years Completed 12/31/2018, 10/27/2011 Depression Screening Completed 05/06/2024 Influenza Vaccine Completed 11/21/2024, , 11/01/2022, Additional history exists HIB Vaccines Aged Out No longer eligi ble based on patient's age to complete this topic HPV Vaccines Aged Out No longer eligi ble based on patient's age to complete this topic Hepatitis A Vaccines Aged Out No long er eligible based on patient's age to complete this topic Hepatitis B Vaccines Aged Out No long er eligible based on patient's age to complete this topic IPV Vaccines Aged Out No longer eligi ble based on patient's age to complete this topic MMR Vaccines Aged Out No longer eligi ble based on patient's age to complete this topic Meningococcal ACWY Vaccine Aged Out N o longer eligible based on patient's age to complete this topic Meningococcal B Vaccine Aged Out No l onger eligible based on patient's age to complete this topic RSV Immunization Patients Under 20 months Aged Out No longer eligible based on patient's age to complete this topic Varicella Vaccines Aged Out No longer eligible based on patient's age to complete this topic Procedures Procedure Name Priority Date/Time Associated Diagnosis Comments CBC WITH AUTO DIFFERENTIAL Routine 12/12/2024 1:13 PM EST Dental caries CBC AND DIFFERENTIAL Routine 12/12/2024 1:13 PM EST Dental caries CT ABDOMEN PELVIS WO CONTRAST Routine 12/09/2024 2:40 PM EST Umbilical hernia without obstruction and without gangrene Ventral hernia without obstruction or gangrene LIPID PANEL WITH REFLEX TO DIRECT LDL Routine 11/10/2024 12:06 PM EDT Polycythemia Coronary artery disease involving aniak coronary artery of aniak heart without angina pectoris Primary hypertension Gastroesophageal reflux disease without esophagitis 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 V24, [facility] V28) Neuropathy due to type 2 diabetes mellitus ([facility] V24, [facility] V28) Radiculopathy of cervical spine Fibromyalgia Atherosclerosis of aniak arteries of extremities with intermittent claudication, left leg (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 V24, [facility] V28) Mild intermittent asthma, unspecified whether complicated Chronic obstructive pulmonary disease, unspecified COPD type ([facility] V24, [facility] V28) Mild intermittent reactive airway disease without complication Seasonal allergic rhinitis, unspecified trigger Multiple nodules of lung Obstructive sleep apnea Cough, unspecified type Hemorrhoids, unspecified hemorrhoid type PVD (peripheral vascular disease) ([facility] V24) TIA (transient ischemic attack) Vitamin D deficiency Dental caries Irritable bowel syndrome with constipation Hepatic steatosis Other specified disorders of bone density and structure, multiple sites Osteoarthritis, unspecified osteoarthritis type, unspecified site Hammertoe, bilateral Onychomycosis DM (diabetes mellitus) with complications ([facility] V24, [facility] V28) Hypomagnesemia Mixed hyperlipidemia Localized edema Generalized anxiety disorder Umbilical hernia without obstruction and without gangrene Lactose intolerance Lymphedema Obesity, class 1 Hyperkeratosis Presbyopia of both eyes Polypharmacy Major depressive disorder, single episode, mild ([facility] V24) History of non-ST elevation myocardial infarction (NSTEMI) COMPREHENSIVE METABOLIC PANEL Routine 11/10/2024 12:06 PM EDT Generalized anxiety disorder Gastroesophageal reflux disease without esophagitis Neuropathy due to type 2 diabetes mellitus ([facility] V24, 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 V24, [facility] V28) Neuropathy due to type 2 diabetes mellitus (CMS/[facility] V24, [facility] V28) Radiculopathy of cervical spine Fibromyalgia Atherosclerosis of aniak arteries of extremities with intermittent claudication, left leg (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 V24, [facility] V28) Mild intermittent asthma, unspecified whether complicated Chronic obstructive pulmonary disease, unspecified COPD type ([facility] V24, [facility] V28) Mild intermittent reactive airway disease without complication Seasonal allergic rhinitis, unspecified trigger Multiple nodules of lung Obstructive sleep apnea Cough, unspecified type Hemorrhoids, unspecified hemorrhoid type PVD (peripheral vascular disease) ([facility] V24) TIA (transient ischemic attack) Vitamin D deficiency Dental caries Irritable bowel syndrome with constipation Hepatic steatosis Other specified disorders of bone density and structure, multiple sites Osteoarthritis, unspecified osteoarthritis type, unspecified site Hammertoe, bilateral Onychomycosis DM (diabetes mellitus) with complications ([facility] V24, [facility] V28) Hypomagnesemia Mixed hyperlipidemia Localized edema Generalized anxiety disorder Umbilical hernia without obstruction and without gangrene Lactose intolerance Lymphedema Obesity, class 1 Hyperkeratosis Presbyopia of both eyes Polypharmacy Major depressive disorder, single episode, mild ([facility] V24) History of non-ST elevation myocardial infarction (NSTEMI) HEMOGLOBIN A1C Routine 09/26/2024 5:30 AM EDT URINE ALBUMIN CREATININE RATIO Routine 10/20/2020 from Last 3 Months or Most Recently Relevant to Health Maintenance Results * (ABNORMAL) CBC auto differential (12/12/2024 1:13 PM EST) WBC 11.9(H) 4.8 - 10.8 [facility] HEMETOLOGY METHOD 12/12/2024 5:43 PM EST [facility] RBC 5.40(H) 3.80 - 4.80 [facility] LAB HEMETOLOGY METHOD 12/12/2024 5:43 PM EST [facility] Hemoglobin 15.4 11.5 - 16.0 g/dL LAB HEMETOLOGY METHOD 12/12/2024 5:43 PM EST [facility] Hematocrit 48.1(H) 35.0 - 47.0 % LAB HEMETOLOGY METHOD 12/12/2024 5:43 PM [facility] MCV 88.9 79.0 - 98.0 [place] LAB HEMETOLOGY METHOD 12/12/2024 5:43 PM [facility] MCH 28.5 27.0 - 32.0 pcg LAB HEMETOLOGY METHOD 12/12/2024 5:43 PM [facility] MCHC 32.0 32.0 - 37.0 g/dL LAB HEMETOLOGY METHOD 12/12/2024 5:43 PM [facility] RDW 13.6 11.0 - 15.0 % LAB HEMETOLOGY METHOD 12/12/2024 5:43 PM [facility] Platelets 272 130 - 400 K/mcL LAB HEMETOLOGY METHOD 12/12/2024 5:43 PM [facility] MPV 9.5 7.0 - 11.0 [place] LAB HEMETOLOGY METHOD 12/12/2024 5:43 PM [facility] NRBC 0.0 <1.0 % LAB HEMETOLOGY METHOD 12/12/2024 5:43 PM [facility] NRBC Absolute 0.00 <0.10 K/mcL LAB HEMETOLOGY METHOD 12/12/2024 5:43 PM [facility] Neutrophils Relative 72.8 % LAB HEMETOLOGY METHOD 12/12/2024 5:43 PM [facility] Lymphocytes Relative 21.4 % LAB HEMETOLOGY METHOD 12/12/2024 5:43 PM [facility] Monocytes Relative 3.5 % LAB HEMETOLOGY METHOD 12/12/2024 5:43 PM [facility] Eosinophils Relative 1.7 % LAB HEMETOLOGY METHOD 12/12/2024 5:43 PM [facility] Basophils Relative 0.3 % LAB HEMETOLOGY METHOD 12/12/2024 5:43 PM EST [facility] Immature Granulocytes Relative 0.3 % LAB HEMETOLOGY METHOD 12/12/2024 5:43 PM EST [facility] Neutrophils Absolute 8.63(H) 1.50 - 7.00 K/mcL LAB HEMETOLOGY METHOD 12/12/2024 5:43 PM EST [facility] Lymphocytes Absolute 2.54 1.00 - 5.00 K/mcL LAB HEMETOLOGY METHOD 12/12/2024 5:43 PM EST [facility] Monocytes Absolute 0.42 0.20 - 1.00 K/mcL LAB HEMETOLOGY METHOD 12/12/2024 5:43 PM EST [facility] Eosinophils Absolute 0.20 0.00 - 0.50 K/mcL LAB HEMETOLOGY METHOD 12/12/2024 5:43 PM EST [facility] Basophils Absolute 0.04 0.00 - 0.20 K/mcL LAB HEMETOLOGY METHOD 12/12/2024 5:43 PM EST [facility] Immature Granulocytes Absolute 0.03 0.00 - 0.03 K/mcL LAB HEMETOLOGY METHOD 12/12/2024 5:43 PM EST [facility] Blood Venous blood specimen / Unknown Venipuncture / Unknown 12/12/2024 1:13 PM EST 12/12/2024 1:13 PM EST us Namrata Godyo [employer] LAB BLOOD ORDERABLES Final Resul t [facility]) [facility] [address] [place] [address], * CT Abdomen Pelvis wo Contrast (12/09/2024 2:40 PM EST) Anatomical Region Laterality Modality Body Computed Tomogra phy 12/12/2024 3:19 PM EST Impressions 12/12/2024 3:40 PM EST 1. No evidence of acute abdominal organ abnormality. 2. Multiple pulmonary nodules. Some of these are not confirmed to be stable. There have been multiple pulmonary nodules demonstrated on previous chest CT. 3. Omental mass which is intimately associated with small bowel loops. This is not significantly changed in size. This is of uncertain etiology. Possibilities include a developmental cyst. 4. Fat-containing ventral hernias. 5. Subcutaneous fat stranding in the lower abdominal wall/panniculus. This may represent cellulitis. 6. 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 Any decision to perform follow- up for this incidental pancreatic cystic lesion in a patient greater than 80 years old measuring less than 1 cm depends upon other medical conditions and willingness to undergo intervention -------- FINAL REPORT -------- Dictated By: Robert Hair Dictated Date: 12/12/2024 15:19 ET Assigned Physician: Robert Hair Reviewed and Electronically Signed By: Robert Hair Signed Date: 12/12/2024 15:40 ET Workstation ID: [id number] Transcribed By: Self Edit Transcribed Date: 12/12/2024 15:19 ET Narrative 12/12/2024 3:40 PM EST EXAMINATION: CT ABDOMEN/PELVIS WITHOUT IV CONTRAST CLINICAL INFORMATION: Acute abdomen pain. Abdominal wall hernia COMPARISON: Portions of previous CT 06/16/24 TECHNIQUE: Multidetector CT. Helical examination of the abdomen and pelvis. Imaging performed without IV contrast. Reformatting in the coronal and sagittal planes. DLP: 1736 mGy-cm Dose optimization was performed including the use of low-dose iterative reconstruction technique with automatic exposure control based on patient size. Type of contrast: None Volume of IV contrast: None Volume of contrast discarded: 0 mL FINDINGS: LIVER: The right lobe of the liver measures 20.2 cm. The liver contour is slightly irregular. There is no large suspicious focal liver lesion. BILIARY TRACT: There are clips in the expected region of the gallbladder. There is no biliary dilation. SPLEEN: Normal size. No focal lesion. PANCREAS: There is an unchanged sharply circumscribed 0.7 cm round cystic lesion of the pancreatic tail with no perceptible wall or irregularity of the margins. No surrounding stranding. ADRENAL GLANDS: No suspicious abnormality. KIDNEYS: There is no dilation of the intrarenal collecting system on either side. There are round low attenuating renal masses the largest deforms the ventral upper kidney and may represent a cyst. Some are too small to characterize. There is a nonobstructing 0.4 cm calculus in the mid left kidney 13.9 cm from the skin. URINARY BLADDER: The bladder is nearly empty. PELVIC VISCERA: No suspicious abnormality. GASTROINTESTINAL TRACT: No localized colonic wall thickening or pericolonic fat stranding. No suspicious abnormality in the stomach. No disproportionate small bowel dilation. There is a sharply circumscribed low attenuating omental mass which is intimately associated with small bowel loops 12/09/24-8.3 x 4.5 x 4.5 cm 06/16/24-8.1 x 5.1 x 4.5 cm This measures 27 Hounsfield units which is greater than simple fluid. There is no calcification. No internal fat. ABDOMINAL WALL: There is a fat-containing upper abdominal midline hernia. The fascial defect measures 2.66 cm transversely. There is a fat-containing midline ventral hernia with the transverse fascial defect of 2.0 cm. There is subcutaneous fat stranding in the lower abdominal wall/panniculus. No soft tissue gas. LYMPHOVASCULAR STRUCTURES AND FLUID: There is no abdominal aortic aneurysm. There is extensive arterial calcification. There are no enlarged lymph nodes. No significant free intraperitoneal fluid. No evidence of pneumoperitoneum. VISUALIZED LOWER CHEST: There is marked coronary calcification. There is calcification of the mitral annulus. There are multiple pulmonary nodules. There is an unchanged 1.1 cm right middle lobe nodule. There is a 0.8 cm nodule in the medial aspect of the right lower lobe. I cannot confirm stability. There are multiple additional nodules including in the periphery of the middle lobe laterally and in the lateral aspect of the right lower lobe. I cannot confirm stability. Most of these nodules were present on 06/16/24. MUSCULOSKELETAL: No acute or suspicious osseous abnormality. There are degenerative changes in the spine Procedure Note Robert Hair MD - 12/12/2024 EXAMINATION: CT ABDOMEN/PELVIS WITHOUT IV CONTRAST CLINICAL INFORMATION: Acute abdomen pain. Abdominal wall hernia COMPARISON: Portions of previous CT 06/16/24 TECHNIQUE: Multidetector CT. Helical examination of the abdomen and pelvis. Imaging performed without IV contrast. Reformatting in the coronal and sagittal planes. DLP: 1736 mGy-cm Dose optimization was performed including the use of low-dose iterativereconstruction technique with automatic exposure control based on patientsize. Type of contrast: None Volume of IV contrast: None Volume of contrast discarded: 0 mL FINDINGS: LIVER: The right lobe of the liver measures 20.2 cm. The liver contour isslightly irregular. There is no large suspicious focal liver lesion. BILIARY TRACT: There are clips in the expected region of the gallbladder.There is no biliary dilation. SPLEEN: Normal size. No focal lesion. PANCREAS: There is an unchanged sharply circumscribed 0.7 cm round cysticlesion of the pancreatic tail with no perceptible wall or irregularity ofthe margins. No surrounding stranding. ADRENAL GLANDS: No suspicious abnormality. KIDNEYS: There is no dilation of the intrarenal collecting system oneither side. There are round low attenuating renal masses the largestdeforms the ventral upper kidney and may represent a cyst. Some are toosmall to characterize. There is a nonobstructing 0.4 cm calculus in themid left kidney 13.9 cm from the skin. URINARY BLADDER: The bladder is nearly empty. PELVIC VISCERA: No suspicious abnormality. GASTROINTESTINAL TRACT: No localized colonic wall thickening orpericolonic fat stranding. No suspicious abnormality in the stomach. No disproportionate small bowel dilation. There is a sharply circumscribed low attenuating omental mass which isintimately associated with small bowel loops 12/09/24-8.3 x 4.5 x 4.5 cm 06/16/24-8.1 x 5.1 x 4.5 cm This measures 27 Hounsfield units which is greater than simple fluid.There is no calcification. No internal fat. ABDOMINAL WALL: There is a fat-containing upper abdominal midline hernia.The fascial defect measures 2.66 cm transversely. There is a fat-containing midline ventral hernia with the transversefascial defect of 2.0 cm. There is subcutaneous fat stranding in the lowerabdominal wall/panniculus. No soft tissue gas. LYMPHOVASCULAR STRUCTURES AND FLUID: There is no abdominal aorticaneurysm. There is extensive arterial calcification. There are no enlarged lymph nodes. No significant free intraperitoneal fluid. No evidence ofpneumoperitoneum. VISUALIZED LOWER CHEST: There is marked coronary calcification. There iscalcification of the mitral annulus. There are multiple pulmonary nodules. There is an unchanged 1.1 cm rightmiddle lobe nodule. There is a 0.8 cm nodule in the medial aspect of the right lower lobe. Icannot confirm stability. There are multiple additional nodules includingin the periphery of the middle lobe laterally and in the lateral aspect ofthe right lower lobe. I cannot confirm stability. Most of these nodules were present on 06/16/24. MUSCULOSKELETAL: No acute or suspicious osseous abnormality. There aredegenerative changes in the spine IMPRESSION: 1. No evidence of acute abdominal organ abnormality. 2. Multiple pulmonary nodules. Some of these are not confirmed to bestable. There have been multiple pulmonary nodules demonstrated onprevious chest CT. 3. Omental mass which is intimately associated with small bowel loops.This is not significantly changed in size. This is of uncertain etiology.Possibilities include a developmental cyst. 4. Fat-containing ventral hernias. 5. Subcutaneous fat stranding in the lower abdominal wall/panniculus.This may represent cellulitis. 6. 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 Any decision toperform follow-up for this incidental pancreatic cystic lesion in apatient greater than 80 years old measuring less than 1 cm depends uponother medical conditions and willingness to undergo intervention -------- FINAL REPORT -------- Dictated By: Robert Hair Dictated Date: 12/12/2024 15:19 ET Assigned Physician: Robert Hair Reviewed and Electronically Signed By: Robert Hair Signed Date: 12/12/2024 15:40 ET Workstation ID: [id number] Transcribed By: Self Edit Transcribed Date: 12/12/2024 15:19 ET Namrata Godoy ASSISTANT PLANT CONTROL OPERATOR IMG CT PROCEDURES Final Result * (ABNORMAL) Lipid panel with reflex to direct LDL (11/10/2024 12:06 PM EDT) Cholesterol 198 0 - 200 mg/dL LAB CHEMISTRY METHOD 11/10/2024 6:29 PM EDT [facility] Triglycerides 250(H) 0 - 150 mg/dL LAB CHEMISTRY METHOD 11/10/2024 6:29 PM EDT [facility] HDL 51 >=40 mg/dL LAB CHEMISTRY METHOD 11/10/2024 6:29 PM EDT [facility] LDL Calculated 97 0 - 100 mg/dL LAB CHEMISTRY METHOD 11/10/2024 6:29 PM EDT [facility] Comment:Estimated LDL Calcul ated using equation: Total cholesterol - HDL cholesterol - (Triglycerides/5) VLDL Cholesterol Gaston 50 mg/dL LAB CHEMISTRY METHOD 11/10/2024 6:29 PM EDT [facility] Non HDL Chol. (LDL+VLDL) 147(H) <145 mg/dL LAB CHEMISTRY METHOD 11/10/2024 6:29 PM EDT [facility] Chol/HDL Ratio 3.9 0.0 - 4.4 LAB CHEMISTRY METHOD 11/10/2024 6:29 PM [facility] Blood Venous blood specimen / Unknown Venipuncture / Unknown 11/10/2024 12:06 PM EDT 11/10/2024 12:06 PM EDT us Namrata Godoy ASSISTANT PLANT CONTROL OPERATOR LAB BLOOD ORDERABLES Final Resul t [facility] [address] [place] [address], * (ABNORMAL) Comprehensive metabolic panel (11/10/2024 12:06 PM EDT) Sodium 139 133 - 145 mmol/L LAB CHEMISTRY METHOD 11/10/2024 6:29 PM [facility] Potassium 5.2 3.5 - 5.5 mmol/L LAB CHEMISTRY METHOD 11/10/2024 6:29 PM [facility] Comment:Hemolysis present Chloride 101 96 - 110 mmol/L LAB CHEMISTRY METHOD 11/10/2024 6:29 PM [facility] CO2 33(H) 21 - 32 mmol/L LAB CHEMISTRY METHOD 11/10/2024 6:29 PM [facility] Anion Gap 5 3 - 11 LAB CHEMISTRY METHOD 11/10/2024 6:29 PM [facility] Glucose 123(H) 70 - 100 mg/dL LAB CHEMISTRY METHOD 11/10/2024 6:29 PM [facility] BUN 16 5 - 25 mg/dL LAB CHEMISTRY METHOD 11/10/2024 6:29 PM [facility] Creatinine 0.90 0.50 - 1.10 mg/dL LAB CHEMISTRY METHOD 11/10/2024 6:29 PM [facility] eGFR 64 >=60 mL/min/1. 73m2 LAB CHEMISTRY METHOD 11/10/2024 6:29 PM [facility] Comment:Calculation based on the Chronic Kidney Disease Epidemiology Collaboration (CKD-EPI) equation refit without adjustment for race. BUN/Creatinine Ratio 17.8 LAB CHEMISTRY METHOD 11/10/2024 6:29 PM [facility] Calcium 9.4 8.5 - 10.5 mg/dL LAB CHEMISTRY METHOD 11/10/2024 6:29 PM [facility] AST (SGOT) 31 10 - 42 unit/L LAB CHEMISTRY METHOD 11/10/2024 6:29 PM [facility] ALT (SGPT) 29 10 - 60 unit/L LAB CHEMISTRY METHOD 11/10/2024 6:29 PM [facility] Alkaline Phosphatase 77 42 - 121 unit/L LAB CHEMISTRY METHOD 11/10/2024 6:29 PM [facility] Total Protein 7.7 6.0 - 8.0 g/dL LAB CHEMISTRY METHOD 11/10/2024 6:29 PM [facility] Albumin 3.7 3.2 - 5.0 g/dL LAB CHEMISTRY METHOD 11/10/2024 6:29 PM [facility] Total Bilirubin 0.7 0.0 - 1.4 mg/dL LAB CHEMISTRY METHOD 11/10/2024 6:29 PM EDT [facility] Blood Venous blood specimen / Unknown Venipuncture / Unknown 11/10/2024 12:06 PM EDT 11/10/2024 12:06 PM EDT Namrata Godoy ASSISTANT PLANT CONTROL OPERATOR LAB BLOOD ORDERABLES Final Resul t [facility] ([facility] [address] [place] [address], * Vascular US duplex lower extremity arteries bilateral (11/07/2024 3:32 PM EDT) Anatomical Region Laterality Modality Vascular, Abdomen Ultrasound 11/20/2024 12:2 1 PM EDT Impressions 11/20/2024 12:26 PM EDT Right leg: Mild atherosclerotic changes without evidence of significant stenosis or occlusion. Left leg: Mild atherosclerotic changes without evidence of significant stenosis with previously noted elevation of velocity in the distal SFA not demonstrated on the present study. 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 -------- FINAL REPORT -------- Dictated By: Radha Parkinson Dictated Date: 11/20/2024 12:21 ET Assigned Physician: Radha Parkinson Reviewed and Electronically Signed By: Radha Parkinson Signed Date: 11/20/2024 12:26 ET Workstation ID: [id number] Transcribed By: Self Edit Transcribed Date: 11/20/2024 12:21 ET Narrative 11/20/2024 12:26 PM EDT INDICATION: Leg claudication, peripheral arterial disease TECHNIQUE: Arterial duplex imaging obtained of both lower extremities. Right leg: Common femoral artery: Normal velocities and waveform. Superficial femoral artery: Normal velocities and waveform. Popliteal artery: Normal velocities and waveform. Posterior tibial artery: Normal velocities and waveform. Anterior tibial artery: Normal velocities and waveform. Left leg: Common femoral artery: Normal velocities and waveform. Superficial femoral artery: On the present study velocity in the distal SFA up to 120 cm/s with triphasic waveform. Elevated velocity noted on the prior study not demonstrated presently. Popliteal artery: Velocity within the proximal popliteal artery 62 cm/s with triphasic waveform. Posterior tibial artery: Normal velocities and waveform. Anterior tibial artery: Likely distal occlusion with monophasic flow within collateral vasculature. Widely patent dorsalis pedis artery with biphasic waveform and velocity up to 57 cm/s. Procedure Note Radha Parkinson MD - 11/20/2024 INDICATION: Leg claudication, peripheral arterial disease TECHNIQUE: Arterial duplex imaging obtained of both lower extremities. Right leg: Common femoral artery: Normal velocities and waveform. Superficial femoral artery: Normal velocities and waveform. Popliteal artery: Normal velocities and waveform. Posterior tibial artery: Normal velocities and waveform. Anterior tibial artery: Normal velocities and waveform. Left leg: Common femoral artery: Normal velocities and waveform. Superficial femoral artery: On the present study velocity in the distalSFA up to 120 cm/s with triphasic waveform. Elevated velocity noted on theprior study not demonstrated presently. Popliteal artery: Velocity within the proximal popliteal artery 62 cm/swith triphasic waveform. Posterior tibial artery: Normal velocities and waveform. Anterior tibial artery: Likely distal occlusion with monophasic flowwithin collateral vasculature. Widely patent dorsalis pedis artery withbiphasic waveform and velocity up to 57 cm/s. IMPRESSION: Right leg: Mild atherosclerotic changes without evidence of significantstenosis or occlusion. Left leg: Mild atherosclerotic changes without evidence of significantstenosis with previously noted elevation of velocity in the distal SFA notdemonstrated on the present study. Distal anterior tibial artery occlusionwith collateral formation. -------- FINAL REPORT -------- Dictated By: Radha Parkinson Dictated Date: 11/20/2024 12:21 ET Assigned Physician: Radha Parkinson Reviewed and Electronically Signed By: Radha Parkinson Signed Date: 11/20/2024 12:26 ET Workstation ID: [id number] Transcribed By: Self Edit Transcribed Date: 11/20/2024 12:21 ET us Namrata Godoy NP CV VASCULAR PROCEDURES Final Res ult * Hemoglobin A1c (09/26/2024 5:30 AM EDT) Hemoglobin A1C 6.1 <6.5 % LAB CHEMISTRY METHOD 09/26/2024 12:15 PM EDT [facility] Mean Bld Glu Estim. 128 mg/dL LAB CHEMISTRY METHOD 09/26/2024 12:15 PM EDT [facility] Blood Venous blood specimen / Unknown Venipuncture / Unknown 09/26/2024 5:30 AM EDT 09/26/2024 6:32 AM EDT Nathan Norris MD LAB BLOOD ORDERABLES Final Result [facility]) [facility] [address] [place] [address], [place] [phone] * Urine Albumin Creatinine Ratio (10/20/2020) Urine Albumin Creatinine Ratio Abstracted [facility] Provider HEALTH MAINTENANCE Final Result from Last 3 Months or Most Recently Relevant to Health Maintenance Insurance [facility] [address] [place] [id number] [employer] * Guarantor: [facility] Account Type Relation to Patient Date of Phone Billing Address JENN[place] [address] [employer] [facility] Advance Directives Documents on File Type Date Recorded Patient Radioisotope Technologist Expl anation Power of Building Operator 12/05/2024 12:46 PM POA Advance Directives and Living Will 12/05/2024 12:45 PM PROXY Power of Building Operator 10/01/2024 11:58 AM POA Advance Directives and Living Will 09/26/2024 9:18 AM Joya Law Dawn Health Care Proxy Advance Directives and Living Will 06/19/2024 8:08 AM POA Advance Directives and Living Will 06/19/2024 8:07 AM PROXY Advance Directives and Living Will 02/29/2024 7:16 AM ADV DIR-Healthcare Proxy [email or web address] Advance Directives and Living Will 02/29/2024 7:16 AM ADV DIR-MOLST [email or web address].pdf Advance Directives and Living Will 02/29/2024 7:16 AM ADV DIR-Power of Building Operator, financial [email or web address].pdf Health Care Decision (hx) 06/13/2018 ADVANCE DIRECTIVE Health Care Decision (hx) 06/13/2018 ADVANCE DIRECTIVE Health Care Decision (hx) 06/13/2018 ADVANCE DIRECTIVE Health Care Decision (hx) 06/13/2018 ADVANCE DIRECTIVE Health Care Decision (hx) 06/13/2018 ADVANCE DIRECTIVE Health Care Decision (hx) 06/13/2018 ADVANCE DIRECTIVE Health Care Decision (hx) 06/13/2018 ADVANCE DIRECTIVE Health Care Decision (hx) 06/13/2018 ADVANCE DIRECTIVE Health Care Decision (hx) 06/13/2018 ADVANCE DIRECTIVE Health Care Decision (hx) 06/13/2018 ADVANCE DIRECTIVE Health Care Decision (hx) 06/13/2018 ADVANCE DIRECTIVE Health Care Decision (hx) 06/13/2018 ADVANCE DIRECTIVE Health Care Decision (hx) 06/13/2018 ADVANCE DIRECTIVE Health Care Decision (hx) 06/13/2018 ADVANCE DIRECTIVE Health Care Decision (hx) 06/13/2018 ADVANCE DIRECTIVE Health Care Decision (hx) 06/13/2018 ADVANCE DIRECTIVE Health Care Decision (hx) 06/13/2018 ADVANCE DIRECTIVE Health Care Decision (hx) 06/13/2018 ADVANCE DIRECTIVE Health Care Decision (hx) 06/13/2018 ADVANCE DIRECTIVE Health Care Decision (hx) 06/13/2018 ADVANCE DIRECTIVE * Full Code - Confirmed (Latest Code Status on File) Date Activated Date Inactivated Comments 03/28/2024 9:50 AM 11/28/2024 4:03 PM This code s tatus was ascertained in the following way: Code status discussion: per living will or healthcare instructions To update the patient's code status, place a code status order. Do not modify or discontinue any currently active code status orders. Healthcare Agents on File Name Relationship Healthcare Agent Relationship Communication Joya Florez Health Care Agent Care Teams Trimmer And Borer Machine Operator Relationship Specialty Start Date End Date Namrata Godoy NP [address] [place] [id number] PCP - General 12/11/23
--- OUTSIDE RECORDS SUMMARY | 2025-01-26 16:56 | XMS_ITS | Encounter Summary ---
Author Organization [facility] Address [address] [place] [address] Care Team Providers Care Orbitread Operator Name Role Phone Kodi James NP Primary Care Provider [phone] Encounter Details Date Type Department Care Team (Late st Contact Info) Description 11/29/2024 [facility] [address] [place] [address] Kusum Vegas MD [address] [address] Social History Tobacco Use Types Packs/Day Years [...] as of this encounter Progress Notes * Kusum Vegas MD - 11/29/2024 11:06 AM EDT *house calls nurse practitioner nurse notified MD that pt's script for tramadol needs to be sent, and actually placed intoher med pack so that it is compliant with [facility] ([facility]) medication protocol. The patient already hasaugmentin for a probable dental infection, but that too needs to be placed into the med packs, BID. -Called Sat home care nurse, who is currently in flu clinic for our patients, and will not be available after 1:00pm. -Reviewed ED note and labs. GFR is wnl. -For acute dental pain, tramadol 25mg may not be sufficient nor avail at all pharmacies, Q6'. -Ordered tramadol 50mg TID, 5 day supply, to be CPN'd to pt's home address. -Called CK twice. First call: no response after 20 min. -Second time asked CK to obtain proof of double cutter delivery, then CK to call pt's daughter, Joya, to let her know of medication arrival at [facility]. -I called pt's daughter's phone, left VM that if at all possible, she go to [facility] and place the meds (antibiotic twice daily; tramadol 3x/day) in her mother's packs, as our instrumentation and control technician nurse is unavailable after this morning. documented in this encounter Plan of Treatment Upcoming Encounters Date Type Department Care Team (Late st Contact Info) Description 02/03/2025 12:45 PM EST Clinical Support [facility] [phone] 02/10/2025 1:10 PM EST Clinical Support [facility] [address] [address] 03/12/2025 9:00 AM EST Office Visit V[facility] - [place] [address] [place] [phone] Betty Cordero PA [address] [place] [phone] documented as of this encounter Visit Diagnoses Not on filedocumented in this encounter Additional Health Concerns Assessment Noted Time PHQ-9 Depression Total Score: 0 04/01/20 25 2:35 PM EDT documented as of this encounter Care Teams Orbitread Operator Relationship Specialty Start Date End Date Kodi James NP [address] [address] PCP - General 12/11/23 documented as of this encounter
--- OUTSIDE RECORDS SUMMARY | 2025-01-26 16:56 | XMS_ITS | Encounter Summary ---
Author Organization [facility] Address [address] [place] [address] Care Team Providers Care Senior Cytotechnologist Name Role Phone Kodi James NP Primary Care Provider Reason for Visit * Reason Onset Date Comments Clinical 11/29/2024 Daughter called to report par was discharged from [facility] late last night and was ordered to take pain meds for jaw pain. Daughter asking when will she receive meds. manager call provider made aware to follow up for ordering and retail and promotions coordinator nurse will coordinate with weekend nurse to deliver to par. Encounter Details Date Type Department Care Team (Late Contact Info) Description 11/29/2024 [place] On-Call [facility] [address] [place] [address] Ramila Andino NP [address] [address] Social History Tobacco Use Types Packs/Day Years [...] Description 02/03/2025 12:45 PM EST Clinical Support [facility] PA [address] [place] [address] 02/10/2025 1:10 PM EST Clinical Support [facility] [address] [phone] 03/12/2025 9:00 AM EST Office Visit V[facility] Surgery - [place] [address] [place] [address] Betty Cordero PA [address] [place] [address] documented as of this encounter Visit Diagnoses Not on filedocumented in this encounter Additional Health Concerns Assessment Noted Time PHQ-9 Depression Total Score: 0 05/07/19 25 2:35 PM EDT documented as of this encounter Care Teams Senior Cytotechnologist Relationship Specialty Start Date End Date Kodi James NP [address] [address] PCP - General 12/11/23 documented as of this encounter
--- OUTSIDE RECORDS SUMMARY | 2025-01-26 16:56 | XMS_ITS ---
Author Organization [address] [place] [address] Address [address] [place] [address] Phone Care Team Providers Care Cnc Lathe Programmer Name Role Phone Kodi James NP Primary Care Provider [phone] [facility] Status:Enrolled (Active) Start date:11/05/2018 Enrollment date:11/05/2018 Related social drivers of health:Housing Instability, Financial Risk, Transportation, Social Isolation, Food Risk Overview This episode will track PACE documentation. Case Team Name Relationship Phone Kodi James CORE MACHINE OPERATOR Nurse Practitioner [phone] Marko Wright Recreational Therapist Cindy Crowe RN Maintenance Electrician Elva Melo presales consultantMaintenance Electrician Bridget Schumacher AUTOMOTIVE PARTS SALESPERSON Rail Car Loader Nathan Mckeon OT Occupational Therapist Say Moss RN Registered Nurse Kaylee Hyde RD Dietitian Efrain Andrews PT Physical Therapist Wei Felix WOOD BORER Shrimp Boat Captain Rose Rob RN Maintenance Electrician Keeley Cuevas RN Registered Nurse Jennifer Phillip Shrimp Boat Captain Connie POWELLSW Shrimp Boat Captain Joao Young Spiritual Care Evon Ngo PT Physical Therapist Lexis Vo OT Occupational Therapist Kyara VELASQUEZW Shrimp Boat Captain Sandeep Sharp PT Physical Therapist Kusum [place] MD Primary Care Provider Continued Care and Services Coordination
--- OUTSIDE RECORDS SUMMARY | 2025-01-26 16:56 | XMS_ITS | Data Portability ---
Author Organization [place] [facility] Address [address] [place] [phone] Assessment Encounter Date Assessment Date Assessment LastModified by Organization Details LastModified Time 11/02/2018 11/02/2018 89 year old, female, being seen today for c/o redness to the LLE. Redness is reported by pt and her daughter as being present for 5-6 years although they do think it has spread upwards on the leg. Pt daughter called DH at request of caregivers as the caregivers are the ones that reported the redness and also stated the area was warm to touch. Pt is denying pain, increased swelling, open wounds, or any additional concerns. Pt does live in assisted [facility]. pt is hearing impaires so all communication was done through lip reading and writing on paper. Pt daughter and the facility nurse also helped to provide information. Pt has PMH of CVA, HTN, DM, HLD, neuropathy, and unknown lung disease. Exam: [facility] A&o X[facility]. Pt is hearing impaired and has cochlear implant. Pt uses paper and lip reading to communicate mostly. Exam unremarkable for acute concerns or abnormalities except as noted...noted to have erythema of the LLE inferior to the knee down to include toes and entire foot. Blanchable to touch. No open sores or wounds. No wheeping of skin. small amount of edema to BLE. No increased warmth to touch or coolness. Skin is dry. Normal ROM of ankle and toes. CMS intact. Cap refill instant. DDx: cellulitis, chronic discoloration of skin, PVD, dependant edema, DVT working dx: erythema of skin plan: -Please continue to wear compression stockings daily -Please monitor redness for speading beyond the rogel that are made on your left leg, if this it is spreading call dispatch back so we can reevaluate or call in antibiotics as discussed -Monitor for pain, swelling, discoloration of skin, or additional concerns, if this occurs seek immediate reevaluation -Follow up with primary care in 1 week for reevaluation -Keep legs elevated as often as tolerated when sitting at home resting MDM: Area of redness was marked and shown to nurse on staff. Advised to monitor over next 1-2 days for spreading redness, swelling, pain, open sores, or additional concerns, and to have pt reevaluated if this occurs. pt is reported to be on abx all the time and they give her diarrhea so I will hold the abx for now as I do not feel this is cellulitis given reported hx of redness to area for a number of years, no warmth to touch, and no blisters or open wounds. I also do not suspect DVT given report of long hx of symptoms, no increased swelling from baseline, no pain, and negative homans sign. I have discussed plan of care with pt, nurse, and pt daughter. All parties agree with plan of care and verbalized understanding of DC instructions. Time On Scene with Patient: 00:41:47 Not available 11/02/2018 12:36:49 Plan of Treatment Reminders Order Date Submit Date Provider Last Modified By Organization Details Last Modified Time Details Appointments None record ed. Lab None record ed. Referral None record ed. Procedures None record ed. Surgeries None record ed. Imaging None record ed. Medication Orders None record ed. Patient TargetsNo targets recorded. Patient Instructions Encounter Date Encounter Id Patient Instructions Last Modified By Organization Details Last Modified Time 11/02/2018 [id number] -Please continue to wear compression stockings daily -Please monitor redness for speading beyond the rogel that are made on your left leg, if this it is spreading call dispatch back so we can reevaluate or call in antibiotics as discussed -Monitor for pain, swelling, discoloration of skin, or additional concerns, if this occurs seek immediate reevaluation -Follow up with primary care in 1 week for reevaluation -Keep legs elevated as often as tolerated when sitting at home resting Not available 11/02/2018 12:13:13 Reason for Referral None Reported. Medical Equipment None Reported. Allergies Allergen ID Allergen Name Allergen Category Reaction Reaction Severity Criticality Documentation Date Start Date Code Code System Note Provider Name and Address Organization Details Recorded Time [address] [place] [employer] Not available Not available Not available 11/02/2018 52978 2 RxNorm NOLAN MILES NP [address], [place], [address], [place] [facility] 12:00:16 01569 Substance with sulfonami de structure and antibacte rial mechanism of action (substanc e) medicatio n Not available Not available Not available 11/02/2018 47792 8003 SNOMED NOLAN MILES, ARIADNA [address], Stephen encarnacion, [place], [address], [place] [facility] 12:00:21 Medications Name Sig Start Date Stop Date Status Note LastModified by Organization Details LastModified Time atropine active Not Available Not Avai lable Not Available atorvastatin active Not Available Not Available Not Available phenazopyridine active Not Available N ot Available Not Available clonidine active Not Available Not Silvia ilable Not Available ipratropium bromide active Not Available Not Available Not Available magnesium oxide active Not Available N ot Available Not Available Aspir-81 active Not Available Not Avai lable Not Available clopidogrel active Not Available Not A vailable Not Available furosemide active Not Available Not Av ailable Not Available lactase active Not Available Not Avail able Not Available montelukast active Not Available Not A vailable Not Available losartan active Not Available Not Avai lable Not Available atenolol active Not Available Not Avai lable Not Available nifedipine active Not Available Not Av ailable Not Available Tums active Not Available Not Availa ble Not Available Vitamin D3 active Not Available Not Av ailable Not Available gabapentin active Not Available Not Av ailable Not Available pantoprazole active Not Available Not Available Not Available Florastor active Not Available Not Silvia ilable Not Available duloxetine active Not Available Not Av ailable Not Available Lantus Solostar U-100 Insulin active Not Available Not Availabl e Not Available Myrbetriq active Not Available Not Silvia ilable Not Available Breo Ellipta active Not Available Not Available Not Available [facility] active Not Available Not Available Not Available Humalog Arpan KwikPen U-100 active Not Available Not Availabl e Not Available Vitals Date Recorded Respiratory rate Body temperature Heart rate Oxygen saturation Systolic And Diastolic Provider Name and Address Organization Details Last Updated DateTime 9 16 /min 98.3 [degF] 74 /min 90 % 118/72 mm[Hg] Not Available [facility] 11:49:13 Social History Question Answer Notes LastModified by Organizat ion Details LastModified Time Tobacco Smoking Status Unknown If Ever Smoked NOLAN MILES NP [address] [place], [address], [place] [facility] 11/02/2018 12:09:25 Within The Past 12 Months, Has It Happened That The Food You Bought Just Didn't Last And You Didn't Have Money To Get More. Normal Information not available 11/02/2018 Within The Past 12 Months, Have You Worried That Your Food Would Run Out Before You Got Money To Buy More. Yes Information not available 11/02/2018 Fall Risk: Do You Feel Unsteady When Standing Or Walking? Yes Information not available 11/02/2018 Sex: Unknown Functional Status None recorded. Mental Status None recorded. Family History Nothing Reported. Medical History No medical history recorded. Gynecological HistoryNo gynecological history recorded. Obstetrics History GPAL:G 0 P 0 0 0 0 Past Encounters Encounter ID Performer Location Encounter Start Date Encounter Closed Date Diagnosis/Indication Diagnosis SNOMED-CT Code Diagnosis ICD10 Code Diagnosis IMO Codes Diagnosis Note [id number] NOLAN MILES NP [facility] [address] [place] [address] 11/02/2018 10:36:43 11/02/2018 12:50:23 Edema of lower extremity 841124054 R60.0 Erythema of skin 7962333 08 L53.9 Health Concerns Section Related Observation LastModified by Organization Detai ls LastModified Time None Recorded Concern Status LastModified by Organization Details LastModified Time None Recorded Advance Directives Directive None Recorded Payers Insurance Date Sequence Insurance Name Policy Number Policy Garrido Covered Member ID Garrido Member ID Guarantor Name 11/01/2018 1 [employer] - MEDICARE ADVANTAGE PLAN (MEDICARE REPLACEMENT HMO) [id number] 1 Kyara Foy [id number] Kyara Foy 11/01/2018 1 *SELF PAY* Kyara Foy [id number] Kyara Foy Notes Date Note Type Note Provider Name and Address Organization Details Recorded Time 11/02/2018 text/html 78 year old, female, being seen today for c/o redness to the LLE. Redness is reported by pt and her daughter as being present for 5-6 years although they do think it has spread upwards on the leg. Pt daughter called at request of caregivers as the caregivers are the ones that reported the redness and also stated the area was warm to touch. Pt is denying pain, increased swelling, open wounds, or any additional concerns. Pt does live in assisted ch[facility]. pt is hearing impaires so all communication was done through lip reading and writing on paper. Pt daughter and the facility nurse also helped to provide information. Pt has PMH of CVA, HTN, DM, HLD, neuropathy, and unknown lung disease. NOLAN MILES NP [address] [place] [address] [address], [place], [address], [place] [facility] 11/02/2018 12:39:18 OBGyn Episode No OBEpisode recorded.
--- OUTSIDE RECORDS SUMMARY | 2025-01-26 16:56 | XMS_ITS | Encounter Summary ---
Author Organization [facility] Address [address] [place] [address] Care Team Providers Care Laboratory Administrative Director Name Role Phone Kodi James NP Primary Care Provider [phone] Reason for Visit * Reason Onset Date Comments Clinical 11/29/2024 Received several calls from daughter Joya in reference to par and medication. Par was d/c from [facility] late last night. Tramadol was noted on d/c instructions. lamp mechanic provider made aware and ordered for CPN'ed delivery to [facility]. Daughter instructed to go to [facility] and add Tramadol to blister pack once med is delivered there. Linda from [facility] also called and made aware of the plan. All parties instructed to call back with any further questions. Encounter Details Date Type Department Care Team ([facility] Contact Info) Description 11/29/2024 PACE On-Call [facility] [address] [place] [phone] Kodi James NP [address] [id number] Social History Tobacco Use Types Packs/Day Years [...] Description 02/03/2025 12:45 PM EST Clinical Support [facility] [place] [address] [place] [address] 02/10/2025 1:10 PM EST Clinical Support [facility] [address] [address] 03/12/2025 9:00 AM EST Office Visit V[facility] - [place] [address] [place] [address] Betty Cordero PA [address] [place] [phone] documented as of this encounter Visit Diagnoses Not on filedocumented in this encounter Additional Health Concerns Assessment Noted Time PHQ-9 Depression Total Score: 0 05/07/19 25 2:35 PM EDT documented as of this encounter Care Teams Laboratory Administrative Director Relationship Specialty [place] [address] [place] [address] PCP - General 12/11/23 documented as of this encounter
--- OUTSIDE RECORDS SUMMARY | 2025-01-26 16:56 | XMS_ITS | Encounter Summary ---
Author Organization [facility] Address [address] [place] [address] Care Team Providers Care Communications And Signals Supervisor Name Role Phone Kodi James NP Primary Care Provider [phone] Encounter Details Date Type Department Care Team (Late st Contact Info) Description 06/17/2024 Health Home Core Service [facility] [address] [place] [phone] Negin Bates RN Social History Tobacco Use Types Packs/Day Years [...] Description 02/03/2025 12:45 PM EST Clinical Support [facility] [place] [address] [place] [phone] 02/10/2025 1:10 PM EST Clinical Support [facility] [address] [place] [address] 03/12/2025 9:00 AM EST Office Visit V[facility] Surgery - [place] [address] [place] [address] Betty Cordero PA [address] [place] [address] documented as of this encounter Visit Diagnoses [...] documented as of this encounter Care Teams Communications And Signals Supervisor Relationship Specialty Start Date End Date Kodi James NP 2 [facility] [address] [place] [address] PCP - General 12/11/23 documented as of this encounter
--- OUTSIDE RECORDS SUMMARY | 2025-01-26 16:56 | XMS_ITS | Encounter Summary ---
Author Organization [facility] Address [address] [place] [address] Care Team Providers Care Label Pinker Name Role Phone Kodi James NP Primary Care Provider [phone] Encounter Details Date Type Department Care Team (Late st Contact Info) Description 01/26/2025 Telephone [facility] [address] [place] [address] Danielle Moss RN Social History Tobacco Use Types Packs/Day [...] as of this encounter Progress Notes * Danielle Moss RN - 01/26/2025 1:57 PM EST Return call to Max daughter to advise the original voicemail was to give her the chest x ray results, daughter spoke to RN on 01/22 who advised PARs CXR was negative. Left voicemail for Joya hollis was to give her the CXR results, which she was already made aware of on 01/22 and if she had any further questions to call clinic back. documented in this encounter Plan of Treatment Upcoming Encounters Date Type Department Care Team (Late st Contact Info) Description 02/03/2025 12:45 PM EST Clinical Support [facility] [place] [address] [place] [address] 02/10/2025 1:10 PM EST Clinical Support [facility] [address] [address] 03/12/2025 9:00 AM EST Office Visit [facility] [place] [address] [place] [address] Betty Cordero PA [address] [place] [phone] documented as of this encounter Visit Diagnoses Not on filedocumented in this encounter Additional Health Concerns Assessment Noted Time PHQ-9 Depression Total Score: 0 05/07/19 25 2:35 PM EDT documented as of this encounter Care Teams Label Pinker Relationship Specialty Start Date End Date Kodi James NP [facility] [address] [address] PCP - General 12/11/23 documented as of this encounter
--- OUTSIDE RECORDS SUMMARY | 2025-01-26 16:56 | XMS_ITS | Encounter Summary ---
Author Organization [facility] Address [address] [place] [address] Care Team Providers Care Client Services Specialist Name Role Phone Kodi James NP Primary Care Provider [phone] Reason for Visit * Reason Onset Date Comments Medication 12/14/2024 Swapna from [facility] called to report par was out of Trazodone. Informed her medication was refilled and scheduled for delivery on Sunday12/15/2024. Clinic staff will need to follow up to next calendar day. Encounter Details Date Type Department Care Team (Late st Contact Info) Description 12/14/2024 PACE On-Call [facility] [address] [place] [phone] Kodi James NP [address] [address] Social History Tobacco Use Types Packs/Day Years [...] Notes * Gila Chiu RN - 12/15/2024 8:35 AM EST 12/15/24. IDT aware. Clinic to follow up. documented in this encounter Plan of Treatment Upcoming Encounters Date Type Department Care Team (Late st Contact Info) Description 02/03/2025 12:45 PM EST Clinical Support [facility] [address] [address] 02/10/2025 1:10 PM EST Clinical Support [facility] [address] [address] 03/12/2025 9:00 AM EST Office Visit V[facility] - [place] [address] [place] [address] Betty Cordero PA [address] [place] [phone] documented as of this encounter Visit Diagnoses Not on filedocumented in this encounter Additional Health Concerns Assessment Noted Time PHQ-9 Depression Total Score: 0 05/07/19 25 2:35 PM EDT documented as of this encounter Care Teams Client Services Specialist Relationship Specialty Start Date End Date Kodi James NP [address] [place] [address] PCP - General 12/11/23 documented as of this encounter
--- OUTSIDE RECORDS SUMMARY | 2025-01-26 16:56 | XMS_ITS | Encounter Summary ---
Author Organization [facility] Address [address] [place] [address] Care Team Providers Care Thinner Sprayer Name Role Phone Kodi James NP Primary Care Provider [phone] Encounter Details Date Type Department Care Team (Late st Contact Info) Description 01/22/2025 Telephone [facility] [address] [phone] Keeley Cuevas RN Social History Tobacco Use Types Packs/Day [...] as of this encounter Progress Notes * Keeley Cuevas RN - 01/22/2025 11:28 AM EST Colt's daughter called to ask why The nurse called her, This nurse stated that it was probably to let you know her chest x-ray was negative. She verbalized understanding. documented in this encounter Plan of Treatment Upcoming Encounters Date Type Department Care Team (Late st Contact Info) Description 02/03/2025 12:45 PM EST Clinical Support [facility] [place] [address] [place] [address] 02/10/2025 1:10 PM EST Clinical Support [employer] [address] 03/12/2025 9:00 AM EST Office Visit Vascular Surgery - [place] [address] [place] [address] Betty Cordero, DEE [address] [place] [phone] documented as of this encounter Visit Diagnoses Not on filedocumented in this encounter Additional Health Concerns Assessment Noted Time PHQ-9 Depression Total Score: 0 05/07/19 25 2:35 PM EDT documented as of this encounter Care Teams Thinner Sprayer Relationship Specialty Start Date End Date Kodi James NP [address] [address] PCP - General 12/11/23 documented as of this encounter
--- OUTSIDE RECORDS SUMMARY | 2025-01-26 16:57 | XMS_ITS | Clinical Summary ---
Author Organization [facility] Prior to 07/05/24 Address [address] [place] [address] Care Team Providers Care Specialized Developer Name Role Phone Unavailable Primary Care Provider Unavailabl e Allergies Active Allergy Reactions Criticality Noted Date Comments Atorvastatin 03/28/2022 Other reaction(s): unknown Ceftriaxone 03/28/2022 Other reaction(s): unknown mild hepatitisminor skin reaction and itching Sulfa Antibiotics 02/14/2022 Other reaction(s): unknown Valsartan 03/28/2022 Other reaction(s): unknown Valsartan-Hydrochlorothia zide 02/14/2022 Medications Medication Sig Dispensed Refills Start Date End Date Status albuterol 108 (90 Base) MCG/ACT inhaler Inhale 2 puffs into the lungs. 0 09/17/2017 Active ascorbic acid (VITAMIN C) 1000 MG tablet Take 1 tablet (1,000 mg total) by mouth daily. 0 Active Aspirin 81 MG CAPS Take by mouth. 0 Ac tive atenolol (TENORMIN) tablet 50 mg Take 1 tablet (50 mg total) by mouth daily. 0 09/17/2017 Active atorvastatin (LIPITOR) tablet 80 mg Take 1 tablet (80 mg total) by mouth daily. 0 01/14/2018 Active beclomethasone HFA (QVAR RediHaler) 80 MCG/ACT inhaler Inhale into the lungs. 0 Active beta carotene 35925 UNIT capsule Take 1 capsule (10,000 Units total) by mouth daily. 0 Active busPIRone (BUSPAR) 5 MG tablet Take 1 tablet (5 mg total) by mouth 3 (three) times a day. 0 Active calcium carbonate (OS-LEONIDES) 1250 (500 Ca) MG chewable tablet Chew 1 tablet (1,250 mg total) by mouth daily. 0 Active Cholecalciferol 125 MCG (5000 UT) capsule Take by mouth. 0 Active cloNIDine (CATAPRES TTS) 0.2 MG/24HR PTWK Apply topically. 0 09/17/2017 Active clopidogrel (Plavix) 75 MG tablet Take 1 tablet (75 mg total) by mouth. 0 09/17/2017 Active Diclofenac Sodium 1 % GEL Apply topically. 0 Active DULoxetine (CYMBALTA) DR capsule 30 mg Take 1 capsule (30 mg total) by mouth daily. 0 01/14/2018 Active ergocalciferol (VITAMIN D2) capsule 05966 units Take by mouth. 0 09/17/2017 Active furosemide (LASIX) 40 MG tablet Take 1 tablet (40 mg total) by mouth daily. 0 09/17/2017 Active gabapentin (NEURONTIN) 100 MG capsule Take 1 capsule (100 mg total) by mouth daily. 0 09/17/2017 Active Insulin Glargine-yfgn 100 UNIT/ML SOLN Inject under the skin. 0 Active losartan (COZAAR) 100 MG tablet Take 1 tablet (100 mg total) by mouth daily. 0 Active Magnesium Oxide 400 MG CAPS Take by mouth. 0 Active methenamine (HIPREX) 1 g tablet Take 1 tablet (1 g total) by mouth. 0 Active Mirabegron ER (MYRBETRIQ) 25 MG TB24 24 hr tablet Take by mouth. 0 Active montelukast (SINGULAIR) 10 MG tablet Take 1 tablet (10 mg total) by mouth every night at bedtime. 0 09/17/2017 Active NIFEdipine ER (ADALAT CC) 60 MG 24 hr tablet Take 1 tablet (60 mg total) by mouth daily. 0 Active pantoprazole (PROTONIX) 20 MG tablet Take 1 tablet (20 mg total) by mouth daily. 0 09/17/2017 Active polyethylene glycol (GLYCOLAX) 17 GM/SCOOP powder Take 17 g by mouth. 0 Active senna-docusate (PERICOLACE) 8.6-50 MG Take 1 tablet by mouth daily. 0 Active Active Problems No known active problems Social History Tobacco Use Types Packs/Day Years Used Date Smoking Tobacco: Never Smokeless Tobacco: Never Tobacco Cessation:Counseling Given: Not Answered Alcohol Use Standard Drinks/Week Comments Never 0 (1 standard drink = 0.6 oz pur e alcohol) Sex and Gender Information Value Date Recorded Sex Assigned at Female 03/03/2022 2:53 PM EST Gender Identity Not on file Sexual Orientation Not on file Job Start Date Occupation Industry Not on file Not on file Not on file Last Filed Vital Signs Vital Sign Reading Time Taken Comments Blood Pressure 113/25 03/28/2022 11:19 AM EST Pulse 70 03/28/2022 11:19 AM EST Temperature 36.6 C (97.9 F) 03/28/2022 11:19 AM EST Respiratory Rate - - Oxygen Saturation 92% 03/28/2022 11:19 AM EST Inhaled Oxygen Concentration - - Weight 100.7 kg (222 lb) 03/28/2022 11:19 AM EST Height - - Body Mass Index - - Plan of Treatment Health Maintenance Due Date Last Done Comments COVID-19 Vaccine (#1) 01/26/1941 Depression Screening 1953 Preventative Health Evaluation 07/28/1959 DTap / Tdap / Td (1 - Tdap) 1960 Shingrix-Zoster Vaccine (1 of 2) 07/28/1991 Fall Risk Assessment 2006 Osteoporosis Screening (DEXA Scan) 2006 Pneumococcal Vaccine (2 of 2 - PCV) 10/18/2012 10/19/2011 RSV Adult > 60+ Yrs or Pregn ant (1 - 1-dose 75+ series) 2016 Influenza Vaccine (#1) 2024 10/19/2011 Hepatitis B Vaccines Aged Out No long er eligible based on patient's age to complete this topic RSV Ped < 20 months Aged Out No longe r eligible based on patient's age to complete this topic [id number] [place] [id number] Kyara Foy Personal/Family Self [address] [place] [address] [id number] [place] [id number]
== END 2025-01-26 13:29 | disposition home or self-care (01) ==
LOC: HO.NEURO 13:28
PROVIDERS: PCP Nurse Practitioner; Visit Provider Psychiatry & Neurology Neurology
DX: G40.909 Epilepsy, unspecified, not intractable, without status epilepticus (principal)
CPT/HCPCS: 95816

== ENCOUNTER → 2025-01-26 14:52 | Outpatient (BNV) | payer OTHER, SELFPAY | PROVIDERS: PCP Nurse Practitioner; Visit Provider Psychiatry & Neurology Neurology | DX: G40.909 Epilepsy, unspecified, not intractable, without status epilepticus (principal) | CPT/HCPCS: 95816 ==